=== PATIENT | male | born 1970 ===

== ENCOUNTER → 2020-07-09 15:02 | Outpatient (BNVA) | payer OTHER, SELFPAY | PROVIDERS: PCP Internal Medicine; Visit Provider Urology | DX: Z76.89 Persons encountering health services in other specified circumstances (principal) ==

== ENCOUNTER 2021-12-23 11:39 | Emergency (ER) | payer OTHER, SELFPAY ==
--- NOTE | ~2021-12-23 | CT_ITS ---
EXAMINATION: CT ABDOMEN AND PELVIS WITHOUT CONTRAST CLINICAL INFORMATION: Left-sided flank pain COMPARISON: CT abdomen pelvis 03/04/2015 TECHNIQUE: Multidetector volumetric imaging was performed from the superior aspect of the liver through the pubic symphysis. Sagittal and coronal reformatted images were obtained on the technologist's workstation. This CT examination was performed using dose optimization techniques as appropriate, variously including the following: *Automated exposure control *Adjustment of mA and/or kV according to patient size (this includes techniques or standardized protocols for targeted exams where dose is matched to indication/reason for exam; i.e. extremities or head) *Use of iterative reconstruction technique DLP: 599 mGy-cm FINDINGS: LUNG BASES: The visualized lung bases are unremarkable. LIVER, GALLBLADDER, AND BILIARY TREE: The liver is mildly enlarged measuring 19.2 cm in greatest cephalocaudad dimension and demonstrates decreased attenuation suggesting hepatic steatosis. Calcified granulomas are again noted in the liver. No worrisome focal hepatic lesion or biliary ductal dilatation is present. The gallbladder is unremarkable with no evidence of radiopaque gallstones, gallbladder wall thickening, or obvious pericholecystic inflammatory changes. PANCREAS: Unremarkable. SPLEEN: There is mild splenomegaly with the spleen measuring 13 cm in greatest cephalocaudad dimension ADRENAL GLANDS: Unremarkable. KIDNEYS AND URETERS: The kidneys are normal in size, shape, and attenuation. No hydronephrosis, hydroureter, or calculi seen. No perinephric stranding. BLADDER: Unremarkable. GASTROINTESTINAL TRACT: A small hiatal hernia is present. The small and large bowel are unremarkable. The appendix is unremarkable. ABDOMINAL WALL: There are bilateral small indirect inguinal hernia seen containing only fat along with a tiny periumbilical hernia containing only fat. LYMPH NODES: No retroperitoneal lymphadenopathy. VASCULAR: Unremarkable. PELVIC VISCERA: Bladder and seminal vesicles are unremarkable. OSSEOUS STRUCTURES: Unremarkable. CT/CT abdomen pelvis wo con IMPRESSION: A definite etiology for the patient's left flank pain has not been found. Incidental note made of an enlarged fatty liver with mild splenomegaly, small hiatal hernia and small bilateral inguinal hernias containing only fat. Fleischner guidelines were followed.
--- NOTE | 2021-12-23 12:45 | ECG_ITS ---
Test Reason : abdominal pain Blood Pressure : / mmHG Vent. Rate : 054 BPM Atrial Rate : 054 BPM P-R Int : 150 ms QRS Dur : 076 ms QT Int : 404 ms P-R-T Axes : 068 024 008 degrees QTc Int : 383 ms Artifact in tracing Sinus bradycardia Otherwise normal ECG No previous ECGs available Referred By: Marie Ellis Electronically Signed By:SHAILESH CALERO
[2021-12-23 13:22] VITALS: BP 140/97; PULSE 60; RESP 19; TEMP 36.3; O2SAT 98; BMI 32.8
[2021-12-23 13:38] LABS: MANUAL DIFF FLAG NO
[2021-12-23 13:40] LABS: Basophils Percent Auto 0.3 % (0-2); Eosinophils Absolute Auto 0.2 X10*3/uL (0.0-0.4); Eosinophils Percent Auto 2.4 % (0-4); Hematocrit 46.9 % (42.0-52.0); Hemoglobin 16.3 g/dl (14.0-18.0); Imm Gran Abs Auto 0.01 X10*3/uL (0.00-0.03); Imm Gran Pct Auto 0.1 % (0.0-0.4); Lymphocytes Absolute Auto 1.9 X10*3/uL (1.2-4.9); Mean Corpuscular HGB Conc 34.8 g/dl (31.0-36.0); Mean Corpuscular Volume 80.4 fL (80.0-98.0); Mean Platelet Volume 9.5 fL (9.4-12.4); Monocytes Absolute Auto 0.5 X10*3/uL (0.1-1.2); Monocytes Percent Auto 7.6 % (2-11); Neutrophils Absolute Auto 4.4 x10*3/uL (2.0-8.3); Neutrophils Percent Auto 62.6 % (45-73); Platelet Count 208 X10*3/uL (160-400); Red Blood Count 5.83 X10*6/uL (4.60-5.80); Red Cell Distribution Width 12.7 % (11.0-16.0); White Blood Count 7.1 X10*3/uL (4.8-10.8)
[2021-12-23 14:00] LABS: Alanine Aminotransferase 22 U/L (0-40); Albumin Level 4.6 g/dL (3.5-5.0); Alkaline Phosphatase 115 U/L (39-117); Anion Gap 10 (12-20); Aspartate Amino Transferase 22 U/L (5-37); Bilirubin Direct 0.3 mg/dL (0.0-0.5); Bilirubin Total 0.7 mg/dL (0.0-1.0); Blood Urea Nitrogen 19 mg/dL (9-16); Calcium 9.8 mg/dL (8.4-10.2); Carbon Dioxide 29 mmol/L (22-29); Chloride 107 mmol/L (96-108); Creatinine Clr Calc Pharmacy 85.7; Estimated Glomerular Filt Rate > 60; Glucose Random 92 mg/dL (60-115); Lipase 64 U/L (8-78); Potassium 4.6 mmol/L (3.3-5.1); Sodium 141 mmol/L (135-145)
[2021-12-23 14:41] LABS: Appearance Urine CLEAR; Color Urine YELLOW; Glucose Urine UA NEG (NEG); Leukocyte Esterase Urine NEG (NEG); Nitrite Urine NEG (NEG); Urine Blood NEG (NEG); Urine Ketones NEG (NEG); Urine Protein NEG (NEG-TRACE)
--- NOTE | 2021-12-23 18:36 | ED_ITS ---
HPI - Abdominal Pain General Chief Complaint: Abdominal Pain Stated Complaint: side abd pain Time Seen by Provider: 12/23/21 12:44 Source: patient Mode of arrival: ambulatory Limitations: no limitations History of Present Illness HPI narrative: Patient complaining of left flank left upper abdominal pain for last few months off and on, No correlation with food or movements no urinary complaints for last 2 days patient with feeling nauseated no vomiting no diarrhea no fever no chills has not seen any specialist for this pain Related Data Home Medications Medication Instructions Recorded Confirmed fenofibrate micronized 67 mg 67 mg PO DAILY 07/09/20 capsule flu vac qs 2019(4 yr up)CD(PF) ml IM 07/09/20 lisinopril 10 mg tablet 10 mg PO DAILY 07/09/20 omeprazole 20 mg capsule,delayed 20 mg PO DAILY 07/09/20 release sildenafil 100 mg tablet 100 mg PO DAILY PRN 07/09/20 Previous Rx's Medication Instructions Recorded tramadol 50 mg tablet 50 mg PO Q6H PRN #20 tab 12/23/21 Allergies Allergy/AdvReac Type Severity Reaction Status Date / Time Benadryl Allergy Unknown heart Uncoded 12/22/18 00:00 palpitations Review of Systems Review of Systems Yes all other systems are reviewed and are negative [facility] Past Medical History Medical History ADD (attention deficit disorder) High cholesterol HTN (hypertension) Social History Social History Advance Directives: No Advance Directives Information Provided: No Physical Exam ED Vital Signs: Vital Signs - 24 hr 12/23/21 13:22 12/23/21 18:41 Temperature 97.3 F 98.3 F Pulse Rate 60 68 Respiratory Rate 19 18 Blood Pressure 140/97 H 143/100 H Pulse Oximetry 98 98 BMI result Body Mass Index 32.8 Appearance: Alert. Oriented X3. No acute distress. ENT: Pharynx normal. Oral Mucosa moist Neck: Normal inspection. Neck supple. CVS: Normal heart rate and rhythm. Pulses normal. Respiratory: No respiratory distress. Equal air entry bilateral, no wheezing/rales/rhonchi Abdomen: Soft, deep tenderness left upper quadrant, Bowel sounds are present, no mass palpable, no CVA tenderness Skin: Skin warm and dry. Normal skin color. Normal skin turgor. Extremities: No lower extremity edema. No calf tenderness Neuro: Oriented X 3. MDM - Abdominal Pain MDM Narrative Medical decision making narrative: Patient has nonspecific pain on left side CT scan negative labs are stable likely musculoskeletal will discharge patient home advised to follow with PCP Lab Data Attestation: I reviewed the patient's lab results. Result diagrams: 12/23/21 13:34 12/23/21 13:34 Labs: Lab Results 12/23/21 12/23/21 12/23/21 Range/Units 13:34 13:34 14:33 WBC 7.1 (4.8-10.8) X10*3/uL RBC 5.83 H (4.60-5.80) X10*6/uL Hgb 16.3 (14.0-18.0) g/dl Hct 46.9 (42.0-52.0) % MCV 80.4 (80.0-98.0) fL MCH 28.0 (27.0-33.0) pg MCHC 34.8 (31.0-36.0) g/dl RDW 12.7 (11.0-16.0) % Plt Count 208 (160-400) X10*3/uL MPV 9.5 (9.4-12.4) fL Immature Gran % (Auto) 0.1 (0.0-0.4) % Neut % (Auto) 62.6 (45-73) % Lymph % (Auto) 27.0 (20-40) % Roberts % (Auto) 7.6 (2-11) % Eos % (Auto) 2.4 (0-4) % Baso % (Auto) 0.3 (0-2) % Lymph # (Auto) 1.9 (1.2-4.9) X10*3/uL Roberts # (Auto) 0.5 (0.1-1.2) X10*3/uL Eos # (Auto) 0.2 (0.0-0.4) X10*3/uL Baso # (Auto) 0.0 (0.0-0.2) X10*3/uL Abs Immat Gran (auto) 0.01 (0.00-0.03) X10*3/uL Absolute Neuts (auto) 4.4 (2.0-8.3) x10*3/uL Absolute Nucleated RBC 0.000 (0.0-0.012) X10*3/uL Nucleated RBC % (auto) 0.0 (0.0-0.2) /100WBC Sodium 141 (135-145) mmol/L Potassium 4.6 (3.3-5.1) mmol/L Chloride 107 (96-108) mmol/L Carbon Dioxide 29 (22-29) mmol/L Anion Gap 10 L (12-20) BUN 19 H (9-16) mg/dL Creatinine 1.18 (0.5-1.4) mg/dL Estim Creat Clear Calc 85.7 Estimated GFR > 60 Random Glucose 92 (60-115) mg/dL Calcium 9.8 (8.4-10.2) mg/dL Total Bilirubin 0.7 (0.0-1.0) mg/dL Direct Bilirubin 0.3 (0.0-0.5) mg/dL AST 22 (5-37) U/L ALT 22 (0-40) U/L Alkaline Phosphatase 115 (39-117) U/L Total Protein 7.0 (6.5-8.0) g/dL Albumin 4.6 (3.5-5.0) g/dL Lipase 64 (8-78) U/L Urine Color YELLOW Urine Appearance CLEAR Urine pH 6.0 (5.0-8.0) Ur Specific Emerson 1.020 (1.005-1.025) Urine Protein NEG (NEG-TRACE) MG/DL Urine Glucose (UA) NEG (NEG) MG/DL Urine Ketones NEG (NEG) MG/DL Urine Blood NEG (NEG) Urine Nitrite NEG (NEG) Ur Leukocyte Esterase NEG (NEG) Discharge Plan Discharge Clinical Impression: Abdominal pain Patient Disposition: Home, Self-Care Instructions: Abdominal Pain (ED) Additional Instructions: Your cause of abdominal pain is not very clear, CT scan is negative for any acute pathology Likely pain is muscular take tramadol for pain Prescriptions: New tramadol 50 mg tablet 50 mg PO Q6H PRN (Reason: pain) Qty: 20 0RF Interventions: ED Discharge Assessment Last Done: 12/23/21 20:48 Discharge Date/Time: 12/23/21 20:49
[2021-12-23 18:41] VITALS: BP 143/100; PULSE 68; RESP 18; TEMP 36.8; O2SAT 98
--- NOTE | 2021-12-23 18:49 | PC.NURSE ---
Pt c/o LUQ pain that radiates into the back for awhile but worsening since Wednesday. Pt pain 04/05, denies N/V/D at this time. Denies urinary S/S. Pplan for CT scan. Call greenberg within reach. Will continue to monitor.
== END 2021-12-23 20:49 | disposition home or self-care (01) ==
PROVIDERS: Emergency Medicine; Emergency Provider Internal Medicine; PCP Internal Medicine
DX: R10.9 Unspecified abdominal pain (principal); I10 Essential (primary) hypertension; Z79.899 Other long term (current) drug therapy
CPT/HCPCS: 36415; 74176; 80048; 80076; 81003; 83690; 85025; 93005; 99284

== ENCOUNTER 2023-08-25 12:40 | Outpatient (REF) | payer OTHER, SELFPAY | END 2023-08-25 12:41 | disposition home or self-care (01) | LOC: HO.HHCLNP 12:40 | PROVIDERS: Visit Provider Nurse Practitioner Primary Care | DX: M54.50 Low back pain, unspecified (principal); R82.90 Unspecified abnormal findings in urine | CPT/HCPCS: 87086 ==

== ENCOUNTER 2023-09-09 06:31 | Outpatient (REF) | payer OTHER, SELFPAY ==
--- NOTE | ~2023-09-09 | CT_ITS ---
EXAMINATION: CT ABDOMEN AND PELVIS WITH CONTRAST CLINICAL INFORMATION: Abdominal pain, right flank pain. COMPARISON: CT abdomen and pelvis 12/23/2021. TECHNIQUE: Multidetector volumetric images were obtained from the superior aspect of the liver through the pubic symphysis following administration 85 mL of Omnipaque 350 intravenous contrast. Sagittal and coronal reformatted images were obtained on the technologist's workstation. Oral contrast: Yes This CT examination was performed using dose optimization techniques as appropriate, variously including the following: *Automated exposure control *Adjustment of mA and/or kV according to patient size (this includes techniques or standardized protocols for targeted exams where dose is matched to indication/reason for exam; i.e. extremities or head) *Use of iterative reconstruction technique DLP: 505 mGy-cm FINDINGS: LUNG BASES: The visualized lung bases are unremarkable. LIVER, GALLBLADDER, AND BILIARY TREE: Enlarged measuring 20.5 cm right lobe length. Low-attenuation parenchyma consistent with steatosis. Calcified granulomas in segment 4A and segment 8. No discrete liver mass. No biliary ductal dilatation. The gallbladder appears normal. PANCREAS: No discrete pancreatic mass. No pancreatic ductal dilatation. SPLEEN: Mild splenomegaly measuring 12 cm in length. ADRENAL GLANDS: No adrenal mass. KIDNEYS AND URETERS: Symmetric nephrograms. No nephrolithiasis or hydronephrosis. Tiny hypodensity in the lower pole left kidney is too small to characterize but most likely a cyst. No follow-up imaging is recommended. BLADDER: No discrete mass. No bladder calculus. GASTROINTESTINAL TRACT: Small hiatal hernia. The small bowel is normal in caliber. The appendix is not discretely seen but no inflammatory changes around the cecum to suggest occult appendicitis. The large bowel is normal in caliber. No evidence of enteritis or colitis. ABDOMINAL WALL: Small fat-containing umbilical hernia. LYMPH NODES: No lymphadenopathy. VASCULAR: No aortic aneurysm. PELVIC VISCERA: The prostate is not enlarged. OSSEOUS STRUCTURES: Degenerative changes in the spine. CT/CT abdomen pelvis w IV con IMPRESSION: No acute findings to correlate with abdominal pain in right flank pain. Enlarged fatty liver. Mild splenomegaly. Fleischner guidelines were followed.
[2023-09-09 06:42] LABS: MANUAL DIFF FLAG NO
[2023-09-09 07:54] LABS: Basophils Percent Auto 0.6 % (0-2); Eosinophils Absolute Auto 0.2 X10*3/uL (0.0-0.4); Hematocrit 43.1 % (42.0-52.0); Hemoglobin 14.6 g/dl (14.0-18.0); Imm Gran Abs Auto 0.08 X10*3/uL (0.00-0.03); Imm Gran Pct Auto 1.1 % (0.0-0.4); Lymphocytes Percent Auto 26.9 % (20-40); Mean Corpuscular HGB Conc 33.9 g/dl (31.0-36.0); Mean Corpuscular Hemoglobin 27.4 pg (27.0-33.0); Mean Platelet Volume 9.3 fL (9.4-12.4); Monocytes Absolute Auto 0.6 X10*3/uL (0.1-1.2); Monocytes Percent Auto 8.6 % (2-11); Neutrophils Absolute Auto 4.3 x10*3/uL (2.0-8.3); Neutrophils Percent Auto 59.8 % (45-73); Platelet Count 319 X10*3/uL (160-400); Red Blood Count 5.32 X10*6/uL (4.60-5.80); Red Cell Distribution Width 11.9 % (11.0-16.0); White Blood Count 7.2 X10*3/uL (4.8-10.8)
[2023-09-09 08:20] LABS: Alanine Aminotransferase 24 U/L (0-40); Albumin Level 4.3 g/dL (3.5-5.0); Alkaline Phosphatase 109 U/L (39-117); Amylase 53 U/L (28-100); Anion Gap 11 (12-20); Aspartate Amino Transferase 22 U/L (5-37); Bilirubin Total 0.4 mg/dL (0.0-1.0); Blood Urea Nitrogen 18 mg/dL (9-16); Calcium 9.6 mg/dL (8.4-10.2); Carbon Dioxide 25 mmol/L (22-29); Chloride 109 mmol/L (96-108); Estimated Glomerular Filt Rate > 60; Glucose Random 106 mg/dL (60-115); Lipase 65 U/L (8-78); Potassium 4.1 mmol/L (3.3-5.1); Sodium 141 mmol/L (135-145); Total Protein 7.2 g/dL (6.5-8.0)
[2023-09-09 09:01] LABS: Appearance Urine Clear; Color Urine Dark Yellow; Glucose Urine UA Negative (Negative); Leukocyte Esterase Urine Negative (Negative); Nitrite Urine Negative (Negative); Specific Gravity - Urine >= 1.030 (1.005-1.025); Urine Blood Negative (Negative); Urine Ketones Trace mg/dL (Negative); Urine Protein Negative (Neg-Trace)
[2023-09-09] MEDS: iohexoL 350 MG/ML 100 ML INFUS..BTL IV (09:58)
[2023-09-09] MEDS: Barium Sulfate Oral (Vanilla) 450 ML ORAL.SUSP 900 ML PO (10:00)
[2023-09-09 10:16] LABS: Bacteria Urine None Seen (None Seen); Hyaline Casts Urine 0-2 /LPF (0-2); Squamous Epithelial Cell Urine 0-2 /HPF (0-2); WBC Urine 0-5 /HPF (0-5)
== END 2023-09-09 06:32 | disposition home or self-care (01) ==
LOC: HO.CT 06:31
PROVIDERS: PCP Internal Medicine; Visit Provider Nurse Practitioner Primary Care
DX: R10.84 Generalized abdominal pain (principal)
CPT/HCPCS: 36415; 74177; 80053; 81001; 82150; 83690; 85025; Q9967

== ENCOUNTER 2023-11-25 14:47 | Outpatient (AMB) | payer OTHER, SELFPAY ==
--- NOTE | 2023-11-25 15:00 | A.OFFVIS_ITS ---
Intake Intake Visit Reasons: retrograde ejaculation N53.14 Intake Note: New Patient presents today to establish treatment for retrograde ejaculation Meds- None Allergies to Antibiotic- No Known Allergies Blood Thinner- None Patient stated he is not longer taking Sildenafil Post Void Residual: 21ml Corrosion Control Engineer Required: No Accompanied by: Self / Same As Patient Allergies Benadryl Allergy (Unknown, Uncoded 11/25/23 15:11) heart palpitations HPI HPI Comments History of Present Illness Details Gilbert is a very pleasant male. He is seen for the following urologic conditions - erectile dysfunction Erectile dysfunction Progressive Has been using sildenafil on demand Would like to switch to Cialis daily Prescription provided [facility] Medical History ADD (attention deficit disorder) High cholesterol HTN (hypertension) Review of Systems Const Denies chills and Denies fever(s) Card Reports no additional complaints and Denies syncope Resp Denies cough GI Denies abdominal pain and Denies heartburn Reports as per HPI and Denies change in libido Neuro Denies syncope Psych Denies change in libido Endo Denies change in libido Physical Exam Const General: cooperative, healthy appearing, comfortable and no acute distress Orientation/consciousness: patient oriented x3 HEENT Face and sinus: Yes normal facial exam Mouth: moist mucous membranes Neck Neck: Yes normal visual inspection, Yes full ROM and Yes trachea midline Chest Chest palpation & inspection: normal inspection of the chest Resp Effort & Inspection: normal respiratory effort, able to speak in complete sentences and no respiratory distress GI Inspection: Yes normal to inspection Back/Spine/Pelvis Cervical Spine: normal cervical lordosis Thoracic/Lumbar Spine: thoracic and lumbar spine normal to inspection Skin General skin exam: no rashes or lesions noted Neuro General: patient oriented x3, gait normal, tone normal and moves all extremities Extrem General: Yes normal to inspection and Yes capillary refill normal Office Procedures Post Void Residual Post Residual Void Post Void Residual (PVR): 02466-Rdaw Void Residual by ultrasound Assessment & Plan Assessment & Plan (1) Erectile dysfunction: Code(s): N52.9 - Male erectile dysfunction, unspecified (2) BPH NOS w/o ur obs/LUTS: Code(s): N40.0 - Benign prostatic hyperplasia without lower urinary tract symptoms Plan Three-month follow-up tele Orders: Orders AMB Post Void Residual by ultrasound Today R33.9 - Retention of urine, unspecified Medications: New tadalafil 5 mg PO DAILY 90 days 90 tabs 0RF sexual activity N52.01 - Erectile dysfunction due to arterial insufficiency Patient Instructions: Imaging studies, laboratory and physical exam results were discussed and reviewed in detail. No major barriers to patient understanding were identified. An opportunity to ask questions regarding the treatment plan was provided. All questions were answered. The patient expressed understanding and agreement with the above treatment plan. The patient is aware they should contact our office by phone for worsening of their current condition or the appearance of new urologic symptoms. Compliance is encouraged with any medications and followup testing that is ordered. It is a privilege to participate in the urologic care of your patient. If you have any questions or concerns regarding treatment for the above conditions, or other urologic issues, please do not hesitate to contact me. The office telephone contact is [phone]. This note is constructed using voice recognition software. While every effort has been made to ensure accuracy cream cheese maker errors may have been included. Yours sincerely, Dr Luis Mckee MD, [facility] - Urology Providers of Expert, Compassionate Care for the Genitourinary System Coding Level of Care Code New Pt Level 4 (88097) Diagnoses Erectile dysfunction N52.9 BPH NOS w/o ur obs/LUTS N40.0 CPT Codes Post Residual Void - PVR CPT Code: 33289-Cptp Void Residual by ultrasound ([id number])
== END 2023-11-25 15:52 | disposition home or self-care (01) ==
PROVIDERS: PCP Internal Medicine; Visit Provider Urology
DX: N52.9 Male erectile dysfunction, unspecified (principal); N40.0 Benign prostatic hyperplasia without lower urinary tract symptoms
CPT/HCPCS: 99203

== ENCOUNTER → 2023-11-25 14:47 | Outpatient (BNVA) | payer OTHER, SELFPAY | PROVIDERS: PCP Internal Medicine; Visit Provider Urology | DX: N52.9 Male erectile dysfunction, unspecified (principal); N40.0 Benign prostatic hyperplasia without lower urinary tract symptoms | CPT/HCPCS: 51798 ==

== ENCOUNTER 2024-02-10 07:48 | Outpatient (REF) | payer OTHER, SELFPAY ==
--- NOTE | ~2024-02-10 | US_ITS ---
EXAMINATION: US ABDOMEN LIMITED CLINICAL INFORMATION: Right upper quadrant abdominal pain. Rule out gallstones. COMPARISON: CT abdomen and pelvis 09/09/2023. TECHNIQUE: Real-time imaging of the right upper quadrant abdominal viscera. FINDINGS: PANCREAS: Most of the pancreas is obscured by bowel gas and could not be evaluated. LIVER: The liver is likely enlarged as seen on the prior CT scan but accurate measurements were not obtained on this exam. The liver contour is normal. There is diffuse increased liver parenchymal echogenicity, consistent with hepatic steatosis. No focal hepatic lesion. There is no intrahepatic biliary duct dilatation seen. GALLBLADDER: There are some areas of comet tail shadowing consistent with adenomyomatosis. The gallbladder is physiologically distended without evidence of stones, sludge, polyps, wall thickening or pericholecystic fluid. COMMON BILE DUCT: Normal in caliber measuring 0.2 cm in diameter. RIGHT KIDNEY: Normal. No hydronephrosis. No renal calculi or focal parenchymal lesions. The kidney measures 11.2 cm in maximum dimension. FREE FLUID: None. US/US abdomen limited IMPRESSION: 1. Enlarged fatty liver. 2. Adenomyomatosis of the gallbladder.
[2024-02-10 09:09] LABS: Alanine Aminotransferase 31 U/L (0-40); Albumin Level 4.5 g/dL (3.5-5.0); Alkaline Phosphatase 75 U/L (39-117); Anion Gap 12 (12-20); Aspartate Amino Transferase 23 U/L (5-37); Bilirubin Direct 0.2 mg/dL (0.0-0.5); Bilirubin Total 0.7 mg/dL (0.0-1.0); Blood Urea Nitrogen 13 mg/dL (9-16); Calcium 9.2 mg/dL (8.4-10.2); Carbon Dioxide 22 mmol/L (22-29); Chloride 110 mmol/L (96-108); Cholesterol 143 mg/dL (<200); Estimated Glomerular Filt Rate > 60; Glucose Random 115 mg/dL (60-115); HDL Cholesterol 28 mg/dL (>40); LDL Cholesterol Calculated 80 mg/dL (<100); Potassium 3.8 mmol/L (3.3-5.1); Sodium 140 mmol/L (135-145); Total Protein 6.9 g/dL (6.5-8.0); Triglycerides 177 mg/dL (<150)
[2024-02-10 09:23] LABS: Prostate Specific Antigen Scr 0.46 ng/mL (<0.05-4.0)
[2024-02-10 11:43] LABS: Reflex LDLD? No
== END 2024-02-10 07:49 | disposition home or self-care (01) ==
LOC: HO.US 07:48
PROVIDERS: Absent Provider Internal Medicine; PCP Internal Medicine; Visit Provider Internal Medicine
DX: Z00.00 Encounter for general adult medical examination without abnormal findings (principal); R10.11 Right upper quadrant pain; Z12.5 Encounter for screening for malignant neoplasm of prostate; I10 Essential (primary) hypertension; E78.1 Pure hyperglyceridemia; N52.9 Male erectile dysfunction, unspecified; N53.14 Retrograde ejaculation
CPT/HCPCS: 36415; 76705; 80053; 80061; 82248; 84153

== ENCOUNTER 2024-05-05 10:28 | Outpatient (AMB) | payer BC, SELFPAY ==
--- NOTE | 2024-05-05 10:28 | A.OFFVIS_ITS ---
Vital Signs 05/05/24 10:41 Height 5 ft 9 in Weight 230 lb BMI 34.0 BP 164/100 H Blood Pressure Location Lt brachial Position Sitting Pulse 66 Intake Visit Reasons: Gallbladder myomatosis Intake Note: Patient is seen in office for evaluation and treatment of the gallbladder. Pt c/o:pain in the right upper quadrant radiates to the back, onset few months, admits to heartburn and acid reflux, takes omeprazole with relief, does not eat greasy foods- denies n/v/d/c Customs Brokerage Agent Required: No Accompanied by: Self / Same As Patient Allergies Benadryl Allergy (Unknown, Uncoded 05/05/24 10:28) heart palpitations HPI Comments Details: 53-year-old male patient presenting with complaints of abdominal pain mainly in the left upper quadrant radiating to the back bilaterally. The pain is felt intermittently with no clear inciting event. He denies change when eating or not eating. He does report acid reflux and needs to take omeprazole daily otherwise the pain is made worse. He denies nausea, vomiting, fever or chills. Previous workup with CT abdomen and pelvis was negative for diverticulitis. A recent ultrasound of the abdomen did reveal adenomyomatosis of the gallbladder but no gallstones, sludge, wall thickening or pericholecystic fluid. He denies fatty food intolerance, diarrhea or constipation. He presents today to discuss management of the gallbladder findings. [facility] Medical History ADD (attention deficit disorder) HTN (hypertension) High cholesterol Review of Systems Const All systems reviewed & are unremarkable except as noted in HPI and below Denies chills, Denies fever(s), Denies headache(s), Denies poor appetite and Denies weakness ENT Denies headache(s) Card Denies chest pain, Denies irregular heart rhythm, Denies palpitations and Denies dyspnea Resp Denies cough, Denies excessive phlegm production and Denies dyspnea GI Reports abdominal pain, Denies bloating, Denies change in bowel habits, Denies constipation, Reports heartburn, Denies diarrhea, Denies nausea and Denies vomiting Denies difficulty urinating and Denies urinary frequency Musc Denies back pain, Denies muscle weakness and Denies numbness Skin/Breast Denies changing lesions and Denies unusual bruising Neuro Denies headache(s), Denies numbness, Denies paresthesias and Denies weakness Psych Denies anxiety and Denies depression Endo Denies palpitations Alfonso/Lymph Denies lymphadenopathy Physical Exam Vital Signs: Last Vital Signs Pulse 66 05/05/24 10:41 BP 164/100 H 05/05/24 10:41 BMI result Body Mass Index 34.0 Const General: cooperative and no acute distress Nutritional Appearance: well nourished Orientation/consciousness: patient oriented x3 Limitations: no limitations HEENT Head: Yes normocephalic and Yes atraumatic Ears: hearing grossly normal bilaterally Resp Effort & Inspection: normal respiratory effort, no audible wheezes, no cough and no respiratory distress Cardio Jugular venous distension: no JVD GI Other: Soft, nondistended, nontender to deep palpation in all 4 quadrants. Negative Jamison sign, no rebound, guarding or rigidity. Inspection: Yes normal to inspection Skin Other: Warm, dry, no rash Neuro General: patient oriented x3 Extrem General: Yes no clubbing, cyanosis or edema Assessment & Plan Assessment & Plan (1) Adenomyomatosis of gallbladder: Code(s): D13.5 - Benign neoplasm of extrahepatic bile ducts Category: Medical (2) Acid reflux: Code(s): K21.9 - Gastro-esophageal reflux disease without esophagitis Category: Medical Qualifiers: Esophagitis presence: esophagitis presence not specified Qualified Code(s): K21.9 - Gastro-esophageal reflux disease without esophagitis (3) Left upper quadrant abdominal pain: Code(s): R10.12 - Left upper quadrant pain Category: Medical Plan 53-year-old male patient presenting with complaints of upper abdominal pain mainly in the left upper quadrant with radiation to the back. This has been persistent over several years with no clear inciting event, aggravating or relieving factors. Workup with an ultrasound abdomen revealed adenomyomatosis of the gallbladder. Patient currently has no gallbladder symptoms. I would be more concerned about upper GI cause of the pain possibly gastritis or peptic ulcer disease. Patient was previously evaluated by Dr. Good prior to the pandemic and has previously undergone colonoscopy and upper endoscopy. No gallbladder surgery is recommended at this time. I would recommend consultation with Gastroenterology, Dr. Good and a referral has been sent. He should follow up in our office as needed. Orders: Referrals Gastroenterology Referral K21.9 - Gastro-esophageal reflux disease without esophagitis, R10.12 - Left upper quadrant pain Coding Level of Care Code New Pt Level 4 (26282) Diagnoses Adenomyomatosis of gallbladder D13.5 Gastroesophageal reflux disease, unspecified whether esophagitis present K21.9 Esophagitis presence: esophagitis presence not specified Left upper quadrant abdominal pain R10.12
[2024-05-05 10:41] VITALS: BP 164/100; PULSE 66; BMI 34.0
== END 2024-05-05 10:49 | disposition home or self-care (01) ==
PROVIDERS: PCP Internal Medicine; Visit Provider Surgery
DX: D13.5 Benign neoplasm of extrahepatic bile ducts (principal); K21.9 Gastro-esophageal reflux disease without esophagitis; R10.12 Left upper quadrant pain
CPT/HCPCS: 99204

== ENCOUNTER → 2024-05-05 10:28 | Outpatient (BNVA) | payer OTHER, SELFPAY | PROVIDERS: PCP Internal Medicine; Visit Provider Surgery ==

== ENCOUNTER 2025-03-26 09:51 | Outpatient (REF) | payer BC, SELFPAY ==
--- OUTSIDE RECORDS SUMMARY | 2025-03-26 10:23 | XMS_ITS | Encounter Summary ---
Author Organization [employer] Address [address] [place] [address] [address] [place] [address] Care Team Providers Care Residential Mortgage Underwriter Name Role Phone Tomasz Azar MD Primary Care Provide r Reason for Visit * Reason Comments Med Refill Encounter Details Date Type Department Care Team (Late st Contact Info) Description 10/27/2023 Refill [facility] [address], [place] [phone] Maritza Hale ANP [address], [place] [phone] Right flank pain Social History Tobacco Use Types Packs/Day Years Used Date Smoking Tobacco: Never Smokeless Tobacco: Never Alcohol Use Standard Drinks/Week Comments Never 0 (1 standard drink = 0.6 oz pur e alcohol) Depression Answer Date Recorded Patient Health Questionnaire-9 Score 14 09/28/2023 Patient Health Questionnaire-9 Score 14 09/28/2023 Last PHQ-9: Questionnaire Data Not on file 0 09/28/2023 Housing Stability Answer Date Recorded What is your housing situation today? I have srikanth recio 09/28/[address] you li ve. Do you have problems with any of the following? None of the above 09/28/2023 Food Insecurity Answer Date Recorded Within the past 12 months, y ou worried that your food would run out before you got money to buy more: Never True 09/28/2023 Within the past 12 months,th e food you bought just didn't last and you didn't have enough money to get more: Never True 10/2023 Transportation Answer Date Recorded In the past 12 months, has l ack of transportation kept you from medical appts, meetings, work or from getting things needed for daily living? No 09/28/2023 Utilities Answer Date Recorded In the past 12 months, has t he electric, gas, oil or water company threatened to shut off services in your home? No 09/28/2023 Depression Answer Date Recorded Patient Health Questionnaire-2 Score 2 09/28/2023 Sex and Gender Information Value Date Recorded Sex Assigned at Male 07/27/2022 10:23 AM EDT Legal Sex Male 10:23 AM EDT Gender Identity Male 07/27/2022 10:23 AM EDT Sexual Orientation Straight 07/27/2022 10 :23 AM EDT documented as of this encounter Plan of Treatment Upcoming Encounters Date Type Department Care Team (Late st Contact Info) Description 05/31/2025 2:15 PM EDT Office Visit [facility] [address] [place] [address] Tomasz Azar MD [address] [place] [address] documented as of this encounter Visit Diagnoses Diagnosis Right flank pain Abdominal pain, unspecified site documented in this encounter Additional Health Concerns Assessment Noted Time PHQ-9 Depression Total Score: 14 024 3:10 PM EST documented as of this encounter Care Teams Residential Mortgage Underwriter Relationship Specialty Start Date End Date Tomasz Azar MD [address] [place] [address] PCP - General Internal Medicine 05/03/14 documented as of this encounter
[2025-03-26 11:50] LABS: Alanine Aminotransferase 36 U/L (0-40); Albumin Level 4.9 g/dL (3.5-5.0); Alkaline Phosphatase 116 U/L (39-117); Anion Gap 12 (12-20); Aspartate Amino Transferase 34 U/L (5-37); Bilirubin Total 0.9 mg/dL (0.0-1.0); Blood Urea Nitrogen 16 mg/dL (9-16); Calcium 9.5 mg/dL (8.4-10.2); Carbon Dioxide 26 mmol/L (22-29); Chloride 107 mmol/L (96-108); Cholesterol 157 mg/dL (<200); Estimated Glomerular Filt Rate > 60; Glucose Random 106 mg/dL (60-115); HDL Cholesterol 30 mg/dL (>40); LDL Cholesterol Calculated 78 mg/dL (<100); Potassium 3.8 mmol/L (3.3-5.1); Sodium 141 mmol/L (135-145); Total Protein 7.2 g/dL (6.5-8.0); Triglycerides 248 mg/dL (<150)
[2025-03-26 12:06] LABS: Prostate Specific Antigen Scr 0.47 ng/mL (<0.05-4.0)
== END 2025-03-26 09:52 | disposition home or self-care (01) ==
LOC: HO.HHCL 09:51
PROVIDERS: PCP Internal Medicine; Visit Provider Internal Medicine
DX: Z00.00 Encounter for general adult medical examination without abnormal findings (principal); I10 Essential (primary) hypertension; Z12.5 Encounter for screening for malignant neoplasm of prostate
CPT/HCPCS: 36415; 80053; 80061; 84153

== ENCOUNTER 2025-05-08 11:19 | Outpatient (AMB) | payer BC, SELFPAY ==
--- NOTE | 2025-05-08 11:21 | MHC.OFFVIS ---
Vital Signs 05/08/25 11:30 Height 5 ft 9 in Weight 224 lb BMI 33.1 BP 144/90 H Blood Pressure Location Lt brachial Position Sitting Pulse 68 Intake Visit Reasons: (L) inguinal hernia Intake Note: Patient is seen in office for evaluation of a left inguinal hernia. 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, has not had imaging for this, some discomfort at times Last seen: Gallbladder Trace Clerk Required: No Accompanied by: Self / Same As Patient Allergies Benadryl Allergy (Unknown, Uncoded 05/05/24 10:28) heart palpitations Medication List - Last Reconciled 05/08/25 by Stewart Reno MD fenofibrate micronized 67 mg PO DAILY flu vac qs 2019(4 yr up)CD(PF) mL IM lisinopril 10 mg PO DAILY omeprazole 20 mg PO DAILY sildenafil 100 mg PO DAILY PRN tadalafil 5 mg PO DAILY 90 days tramadol 50 mg PO Q6H PRN HPI Comments Details: 54-year-old male patient presenting for evaluation of a left inguinal hernia. He reports a gradual onset of pain beginning in January 2025 without any inciting event. The pain has gradually increased in severity and has been associated with the lump which he is noted when in bed. The lump seems to increase in size with lifting with weights and exercising. He has occasional constipation but denies nausea or vomiting. He denies any previous history of hernias or hernia surgery. He denies any symptoms in the right groin. He presents today to discuss repair of this left inguinal hernia. 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 [facility] Medical History ADD (attention deficit disorder) HTN (hypertension) High cholesterol Review of Systems Const All systems reviewed & are unremarkable except as noted in HPI and below Physical Exam Vital Signs: Last Vital Signs Pulse 68 05/08/25 11:30 BP 144/90 H 05/08/25 11:30 BMI result Body Mass Index 33.1 Const General: cooperative and no acute distress Nutritional Appearance: well nourished Orientation/consciousness: patient oriented x3 Limitations: no limitations HEENT Head: Yes normocephalic and Yes atraumatic Ears: hearing grossly normal bilaterally Resp Effort & Inspection: normal respiratory effort, no audible wheezes, no cough and no respiratory distress Cardio Jugular venous distension: no JVD GI Other: Soft, nondistended, tender in the left groin. Palpation within the inguinal canal does reveal a palpable hernia which increases in size with Valsalva maneuvers. No right inguinal hernias identified. Inspection: Yes normal to inspection Skin Other: Warm, dry, no rash Neuro General: patient oriented x3 Extrem General: Yes no clubbing, cyanosis or edema Assessment & Plan Assessment & Plan (1) Left inguinal hernia: Code(s): K40.90 - Unilateral inguinal hernia, without obstruction or gangrene, not specified as recurrent Category: Medical Plan 54-year-old male patient presenting with complaints of pain in the left groin. The pain comes and goes especially with heavy lifting or with exercising. On examination the patient does indeed have a palpable left inguinal hernia, probable indirect, reducible. I discussed the procedure, risks and alternatives regarding repair of this left inguinal hernia and she consents to an open repair of the left inguinal hernia with mesh. Coding Level of Care Code New Pt Level 4 (29960) Diagnoses Left inguinal hernia K40.90
[2025-05-08 11:30] VITALS: BP 144/90; PULSE 68; BMI 33.1
--- OUTSIDE RECORDS SUMMARY | 2025-05-08 12:27 | XMS_ITS | Clinical Summary ---
Author Organization [employer] [facility] Address [address] [place] [address] Care Team Providers Care Database Designer Name Role Phone Tomasz Naik MD Primary Care Provi henry Family History Medical History Relation Name Comments Diabetes Mother Relation Name Status Comments Brother Alive 2,one not sure of what Father Other does not know Mother Alive Sister Alive 3,healthy Social History Tobacco Use Types Packs/Day Years Used Date Smoking Tobacco: Never Smokeless Tobacco: Never Alcohol Use Standard Drinks/Week Comments No 0 (1 standard drink = 0.6 oz pur e alcohol) Sex and Gender Information Value Date Recorded Sex Assigned at Not on file Legal Sex Male 9:12 AM EST Gender Identity Not on file Sexual Orientation Not on file Obstetrics History Plan of Treatment Health Maintenance Due Date Last Done Comments Hepatitis B Vaccines (1 of 3 - 19+ 3-dose series) 1988 Pneumococcal Vaccine: 50+ Ye ars (1 of 1 - PCV) 2019 Zoster Vaccines (1 of 2) 2019 DTaP,Tdap,and Td Vaccines (2 - Td or Tdap) 08/08/2022 08/08/2012 COVID-19 Vaccine (1 - 2023-2 5 season) 2024 Depression Screening 09/27/2024 Influenza Vaccine (#1) 2025 HIB Vaccines Aged Out No longer eligi ble based on patient's age to complete this topic HPV Vaccines Aged Out No longer eligi ble based on patient's age to complete this topic Hepatitis A Vaccines Aged Out No long er eligible based on patient's age to complete this topic IPV Vaccines Aged Out No longer eligi ble based on patient's age to complete this topic MMR Vaccines Aged Out No longer eligi ble based on patient's age to complete this topic Meningococcal ACWY Vaccine Aged Out N o longer eligible based on patient's age to complete this topic Meningococcal B Vaccine Aged Out No l onger eligible based on patient's age to complete this topic RSV Immunization Patients Un henry 20 months Aged Out No longer eligible b ased on patient's age to complete this topic Varicella Vaccines Aged Out No longer eligible based on patient's age to complete this topic Care Teams Database Designer Relationship Specialty Start Date End Date Tomasz Naik MD [address] [place] [address] [place] [phone] PCP - General 10/28/13
--- OUTSIDE RECORDS SUMMARY | 2025-05-08 12:27 | XMS_ITS | Patient Health Record ---
Author Organization [facility] Address [address] [place] [address] Care Team Providers Care Assembly And Packing Supervisor Name Role Phone Sandoval Brock MD, Tomasz Primary Care Provide r Unavailable Wilbert Good Unavailable [phone] Stewart Reno Unavailable Unavailable Allergies Allergen (clinical drug ingredient) Drug/Non Drug Allergy documented on EMR Reaction Allergy Type Onset Date Status diphenhydramine Benadryl SENSITIVITY Drug Allergy Active walnut (uncoded) Unknown Allergy Act светлана Reason For Referral Referring Provider First Name Tomasz Referring Provider Last Name Sandoval mendoza Referring Provider Speciality Internal M edicine [facility]erred Provider Wilbert Good Referred Address [address] [facility],[address],[place], [place],[address], Referred Provider Specialty Gastroentero logy General Notes Mile Fulton 024 04:27:41 PM EDT > requested an o blue referral for visit with Dr. Good on , Mile Fulton 07/04/2024 02:56:20 PM EDT > PER C THE PT NEEDS TO NOTIFY BC/BS OF HIS PCP. PT NOTIFIED AND TOLD TO CALL BC/BS AND NOTIFY C ONCE THIS IS COMPLETED , Mile Fulton 08/23/2024 09:21:33 AM EST > pt no showed...still needs a referral Referral Priority Routine Medications Medication SIG (Take, Route, Frequency, Duration) Notes Start Date End Date Status Zinc 100 MG 1 tablet Orally Once a day for 30 day(s) Active Dicyclomine HCl 10 MG 1 or 2 capsules Or ally Every 6 hours as needed for abdominal discomfort for 30 day(s) 01/26/2024 Active Omeprazole 20 MG TK 1 C PO QD AC Oral for 30 Active Calcium Magnesium Ac tive Pravastatin Sodium 40 MG TK 1 T PO QD Or al for 90 Active Lisinopril 10 MG TK 1 T PO QD Oral fo r 90 Active Chlorthalidone 25 MG TK 1 T PO QD Oral f or 90 Active Methylphenidate HCl ER 18 MG (Schedule I I Drug) TK 1 T PO QD IN THE MORNING Oral for 30 Active Aspirin 81 MG WRITER 1 T PO QD Oral f or 30 Active Immunizations Vaccine Route Administration Date Status Comme nts Influenza Unknown 01/25/2020 Refused Influenza Unknown 01/26/2024 Refused Social History Tobacco Use: Social History Observation Description Date Details (start date - stop date) Never Smoker NA - NA Tobacco Use/Smoking Question Answer Notes Patient is a nonsmoker Alcohol Screen Question Answer Notes Did you have a drink contain ing alcohol in the past year? Yes How often did you have a dri nk containing alcohol in the past year? Never (0 point) How many drinks did you have on a typical day when you were drinking in the past year? 1 or 2 drinks (0 point) How often did you have 6 or more drinks on one occasion in the past year? Never (0 point) Points 0 Interpretation Negative Section Notes: Nonsmoker; no sig alcohol Nonsmoker; no sig alcohol Problems Problem Type SNOMED Code ICD Code Onset Dates Problem Status W/U Status Risk Notes Problem 855215134 Encounter for screening for malignant neoplasm of colon (Z12.11) Active confirmed Problem 780291797 Gastroesophageal reflux disease, esophagitis presence not specified (K21.9) Active confirmed Problem Right upper quadrant pain (126465396) RUQ abdominal pain (R10.11) Active confirmed Problem Left lower quadrant pain (314969116) LLQ abdominal pain (R10.32) Active confirmed Encounters Encounter Location Date Provider Diagnosis [facility] [address] [place] [phone] 07/03/2024 Wilbert Good [facility] [address] [place] [phone] 08/15/2024 Wilbert Good Plan Of Treatment Pending Test Test Name Order Date LIVER PROFILE 01/26/2024 CBC w DIFF 01/26/2024 US abdomen limited 01/26/2024 Future Test Test Name Order Date UPPER GI ENDOSCOPY 01/25/2020 COLONOSCOPY 01/25/2020 Insurance Providers Payer Name Payer Address Payer Phone Subscriber Number Group Number Insured Name Patient Relationship to Insured Coverage Start Date Coverage End Date [facility] PROFESSIONAL CLAIMS [address] [place] [address] [id number] KATELYN [place] Self - patient is the insured Medical (General) History Medical History History ICD Code Denies [place],DM,CVA,Lung disease,renal dise ase Hypertension Hyperlipidemia GERD-describes an EGD in [facility] in approx 2014; upper endoscopy with me in 03/2020 revealed a small hiatal hernia and reflux, but no evidence of any esophagitis nor Yang's esophagus ADD Colonoscopy in 03/2020 revealed only hype rplastic polyps Surgical History Surgery Date(Month/Year) TESTICLE TORSION
--- OUTSIDE RECORDS SUMMARY | 2025-05-08 12:27 | XMS_ITS | Encounter Summary ---
Author Organization [employer] Address [address] [place] [address] 7[address] [place] [address] Care Team Providers Care Rn Radiation Name Role Phone Tomasz Azar MD Primary Care Provide r Reason for Visit * Reason Comments Med Refill Encounter Details Date Type Department Care Team (Late st Contact Info) Description 10/27/2023 Refill [facility] MEDICINE [address] [place], [place] [phone] Maritza Hale ANP [address] [place], [place] [phone] Right flank pain Social History Tobacco Use [...] Description 05/31/2025 2:15 PM EDT Office Visit [facility] MED[facility]INE [address] [place] [address] Tomasz Azar MD [address] [place] [address] documented as of this encounter Visit Diagnoses Diagnosis Right flank pain Abdominal pain, unspecified site documented in this encounter Additional Health Concerns Assessment Noted Time PHQ-9 Depression Total Score: 14 024 3:10 PM EST documented as of this encounter Care Teams Rn Radiation Relationship Specialty Start Date End Date Tomasz Azar MD [address] [place] [address] PCP - General Internal Medicine 05/03/14 documented as of this encounter
== END 2025-05-08 11:46 | disposition home or self-care (01) ==
LOC: HO.HGS 11:19
PROVIDERS: PCP Internal Medicine; Visit Provider Surgery
DX: K40.90 Unilateral inguinal hernia, without obstruction or gangrene, not specified as recurrent (principal)
CPT/HCPCS: 99214

== ENCOUNTER 2025-09-07 11:07 | Outpatient (AMB) | payer BC, SELFPAY ==
--- NOTE | 2025-09-07 11:22 | A.OFFVIS_ITS ---
Intake Visit Reasons: 1Y Retro Ejac/PVR/PSA(set) Intake Note: Reason for Visit: 1Y PSA/PVR/Retro Ejac follow up Urology Meds: Tadalafil Blood Thinners: None Labs: PSA- 0.47 (03/26/2025) Imaging: None Last PVR: 21 Robotics Technician Required: No Accompanied by: Self / Same As Patient Allergies Benadryl Allergy (Unknown, Uncoded 09/07/25 11:27) heart palpitations HPI Comments Details: Gilbert is a very pleasant male. He is a patient of Dr. Nick. He is seen for the following urologic conditions - erectile dysfunction - lower urinary tract symptoms Twelve month follow-up Had been on daily tadalafil which has run out Experiencing progressive urinary urgency with nocturia and weakness of stream Has significant bother Initiate alfuzosin therapy Three-month follow-up uroflow office Refill daily tadalafil Lower urinary tract symptoms Trial alfuzosin Erectile dysfunction Progressive Has been using sildenafil on demand Would like to switch to Cialis daily Prescription provided [facility] Medical History ADD (attention deficit disorder) HTN (hypertension) High cholesterol Review of Systems Const Denies chills and Denies fever(s) Card Reports no additional complaints and Denies syncope Resp Denies cough GI Denies abdominal pain and Denies heartburn Reports as per HPI and Denies change in libido Neuro Denies syncope Psych Denies change in libido Endo Denies change in libido Physical Exam Const General: cooperative, healthy appearing, comfortable and no acute distress Orientation/consciousness: patient oriented x3 HEENT Face and sinus: Yes normal facial exam Mouth: moist mucous membranes Neck Neck: Yes normal visual inspection, Yes full ROM and Yes trachea midline Chest Chest palpation & inspection: normal inspection of the chest Resp Effort & Inspection: normal respiratory effort, able to speak in complete se ntences and no respiratory distress GI Inspection: Yes normal to inspection Back/Spine/Pelvis Cervical Spine: normal cervical lordosis Thoracic/Lumbar Spine: thoracic and lumbar spine normal to inspection Skin General skin exam: no rashes or lesions noted Neuro General: patient oriented x3, gait normal, tone normal and moves all extremities Extrem General: Yes normal to inspection and Yes capillary refill normal Assessment & Plan Assessment & Plan (1) Erectile dysfunction: Code(s): N52.9 - Male erectile dysfunction, unspecified Category: Medical (2) BPH NOS w/o ur obs/LUTS: Code(s): N40.0 - Benign prostatic hyperplasia without lower urinary tract symptoms Category: Medical Plan Three-month follow-up uroflow office, bladder ultrasound Orders: Orders US bladder 3 Months N40.0 - Benign prostatic hyperplasia without lower urinary tract symptoms Medications: New alfuzosin ER 10 mg PO BEDTIME 90 tabs 0RF 90 days N40.0 - Benign prostatic hyperplasia without lower urinary tract symptoms Refilled tadalafil 5 mg PO DAILY 90 tabs 0RF sexual activity 90 days N52.01 - Erectile dysfunction due to arterial insufficiency Patient Instructions: This note is constructed using voice recognition software. While every effort has been made to ensure accuracy doping supervisor errors may have been included. Imaging studies, laboratory and physical exam results were discussed and reviewed in detail. No major barriers to patient understanding were identified. An opportunity to ask questions regarding the treatment plan was provided. All questions were answered. The patient expressed understanding and agreement with the above treatment plan. The patient is aware they should contact our office by phone for worsening of their current condition or the appearance of new urologic symptoms. Compliance is encouraged with any medications and followup testing that is ordered. It is a privilege to participate in the urologic care of your patient. If you have any questions or concerns regarding treatment for the above conditions, or other urologic issues, please do not hesitate to contact me. The office telephone contact is [phone]. Sincerely, Dr Luis Mckee MD, [facility] - Urology Compassionate Specialist Care for the Genitourinary System Coding Level of Care Code Est Pt Level 4 (00762) Diagnoses Erectile dysfunction N52.9 BPH NOS w/o ur obs/LUTS N40.0
== END 2025-09-07 11:47 | disposition home or self-care (01) ==
LOC: HO.HUSH 11:08
PROVIDERS: PCP Internal Medicine; Visit Provider Urology
DX: N52.9 Male erectile dysfunction, unspecified (principal); N40.0 Benign prostatic hyperplasia without lower urinary tract symptoms
CPT/HCPCS: 99214

== ENCOUNTER 2025-09-13 06:59 | Day surgery (SDC) | payer BC, SELFPAY ==
--- OUTSIDE RECORDS SUMMARY | 2024-08-15 08:00 | XMS_ITS ---
Author Organization [facility] Address [address] [place] [phone] Care Team Providers Care Buyer Broker Name Role Phone Sandoval Brock MD, Tomasz Primary Care Provide r Wilbert Pak [phone] Stewart Reno Unavailable Unavailable REASON FOR VISIT Patient presents today for gastritis, ? ulcer Encounters Encounter Location Date Provider Diagnosis [facility] [address] [facility] [address] [place] [phone] 08/15/2024 Wilbert Good Plan Of Treatment No Information Progress Notes * ADONAY QUEENOB:[birth year] (55 yo M)Acc No.[id number]:08/15/2024 Progress Notes Patient: KATELYN ZUNIGA Provider: Rico Good MD :1970 A ge:53 Y S ex:Male Date:08/15/2024 Address:[address] [place], [place] [id number] Pcp:Tomasz julian MD Subjective: * Chief Complaints: * P atient presents today for gastritis, ? ulcer * The named appointment provid er may or may not be the originator of this progress note, and it is not deemed complete until electronically signed by the appointment provider. Sign off status: Pending * Provider: Rico Good MD Date: 10/15/2023 Generated for Chuy ng/Fapatg/eTransmitting on: 11/07/2024 10:48 PM EST
--- OUTSIDE RECORDS SUMMARY | 2025-09-06 22:48 | XMS_ITS | Patient Health Record ---
Author Organization [facility] Address [address] [place] [phone] Care Team Providers Care Tick Sewer Name Role Phone Sandoval Brock MD, Tomasz Primary Care Provide r Unavailable Wilbert Good Unavailable [phone] Stewart Reno Unavailable Unavailable Allergies Allergen (clinical drug ingredient) Drug/Non Drug Allergy documented on EMR Reaction Allergy Type Onset Date Status walnut (uncoded) Unknown Allergy Act светлана diphenhydramine Benadryl SENSITIVITY Drug Allergy Active Reason For Referral No Information Medications Medication SIG (Take, Route, Frequency, Duration) Notes Start Date End Date Status Zinc 100 MG Tablet 1 tablet Orally Once a day; Duration: 30 day(s) Active Dicyclomine HCl 10 MG Capsule 1 or 2 cap sules Orally Every 6 hours as needed for abdominal discomfort; Duration: 30 day(s) 01/26/2024 Active Omeprazole 20 MG Capsule Delayed Release TK 1 C PO QD AC Oral; Duration: 30 Active Calcium Magnesium Ac tive Pravastatin Sodium 40 MG Tablet TK 1 T PO QD Oral; Duration: 90 Active Lisinopril 10 MG Tablet TK 1 T PO QD Ora l; Duration: 90 Active Chlorthalidone 25 MG Tablet TK 1 T PO QD Oral; Duration: 90 Active Methylphenidate HCl ER 18 MG Tablet Extended Release (Schedule II Drug) TK 1 T PO QD IN THE MORNING Oral; Duration: 30 Active Aspirin 81 MG Tablet Chewable SYSTEMS QA ANALYST 1 T PO QD Oral; Duration: 30 Active Immunizations Vaccine Route Administration Date Status Comme nts Influenza Unknown 01/25/2020 Refused Influenza Unknown 01/26/2024 Refused Social History Tobacco Use: Social History Observation Description Date Details (start date - stop date) Never Smoker NA - NA Social History Drugs/Alcohol: Social Info Question Answer Notes Alcohol Screen Did you have a drink containing alcohol in the past year? Yes How often did you have a drink containing alcohol in the past year? Never (0 point) How many drinks did you have on a typical day when you were drinking in the past year? 1 or 2 drinks (0 point) How often did you have 6 or more drinks on one occasion in the past year? 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 Section Notes: Nonsmoker; no sig alcohol Nonsmoker; no sig alcohol Problems Problem Type SNOMED Code ICD Code Onset Dates Problem Status W/U Status Risk Notes Problem Screening for malignant neoplasm of colon (598446210) Encounter for screening for malignant neoplasm of colon (Z12.11) Active confirmed Problem Gastroesophageal reflux disease (093290610) Gastroesophageal reflux disease, esophagitis presence not specified (K21.9) Active confirmed Problem Right upper quadrant pain (622973980) RUQ abdominal pain (R10.11) Active confirmed Problem Left lower quadrant pain (297676668) LLQ abdominal pain (R10.32) Active confirmed Plan Of Treatment Pending Test Test Name Order Date LIVER PROFILE 01/26/2024 CBC w DIFF 01/26/2024 US abdomen limited 01/26/2024 Future Test Test Name Order Date UPPER GI ENDOSCOPY 01/25/2020 COLONOSCOPY 01/25/2020 Insurance Providers Payer Name Payer Address Payer Phone Subscriber Number Group Number Insured Name Patient Relationship to Insured Coverage Start Date Coverage End Date [facility] [employer] [address] [place] [address] [id number] BERNICE KATELYN Self - patient is the insured Medical (General) History Medical History History ICD Code Denies [place],DM,CVA,Lung disease,renal dise ase Hypertension Hyperlipidemia GERD-describes an EGD in [facility] in approx 2014; upper endoscopy with me in 03/2020 revealed a small hiatal hernia and reflux, but no evidence of any esophagitis nor Yang's esophagus ADD Colonoscopy in 03/2020 revealed only hype rplastic polyps Surgical History Surgery Date(Month/Year) TESTICLE TORSION
--- OUTSIDE RECORDS SUMMARY | 2025-09-06 22:48 | XMS_ITS | Encounter Summary ---
Author Organization [employer] Address [address] [place] [address] [address] [place] [address] Care Team Providers Care Casting House Laborer Name Role Phone Tomasz Azar MD Primary Care Provide r Reason for Visit * Reason Onset Date Comments Nurse Triage 01/08/2025 Encounter Details Date Type Department Care Team ([facility] st Contact Info) Description 01/08/2025 Telephone [facility] [address] [place], [place] [phone] Tomasz Azar MD [address] [place], [place] [phone] Nurse Triage Social History Tobacco Use Types Packs/Day Years Used Date Smoking Tobacco: Never Passive Smoke Exposure: Never Smokeless Tobacco: Never Alcohol Use Standard [...] AM EDT documented as of this encounter Miscellaneous Notes * Telephone Encounter - Caryn Jama - 01/08/2025 2:44 PM EDT Symptom: High Blood Pressure - Caller Reports Outcome: Transfer to a nurse or provider NOW! Reason: Change in vision The caller accepted this outcome. [phone] documented in this encounter Plan of Treatment Upcoming Encounters Date Type Department Care Team (Late st Contact Info) Description 10/11/2025 3:00 PM EST Office Visit [facility] [address] [place], [place] [phone] Tomasz Azar MD [address] [place] [address] documented as of this encounter Visit Diagnoses Not on filedocumented in this encounter Additional Health Concerns Assessment Noted Time PHQ-9 Depression Total Score: 14 024 3:10 PM EST documented as of this encounter Care Teams Casting House Laborer Relationship Specialty Start Date End Date Tomasz Azar MD [address] [place], [place] [phone] PCP - General Internal Medicine 05/03/14 documented as of this encounter
--- OUTSIDE RECORDS SUMMARY | 2025-09-06 22:48 | XMS_ITS | Clinical Summary ---
Author Organization [employer] Address [address] [place] [address] [address] [place] [address] Care Team Providers Care Mesh Cutter Name Role Phone Tomasz Azar MD Primary Care Provide r Allergies Active Allergy Reactions Criticality Noted Date Comments Diphenhydramine 07/05/2014 Other reaction(s): Altered Heart Rate Medications * This document contains information received from the source organization and may not represent a complete record from that organization. triamcinolone (Kenalog) 0.025 % creamIndications:Dermat itis Apply topically 2 times daily. 15 g 3 12/23/19 23 Active omeprazole (PriLOSEC) [address] capsuleIndications:Marbin roesophageal reflux disease without esophagitis TAKE 1 CAPSULE(20 MG) BY MOUTH BEFORE BREAKFAST 90 capsule 1 02/17/20 23 Active lisinopril 10 MG tabletIndications:Essen tial hypertension Take 1 tablet (10 mg) by mouth Once per day. 90 tablet 1 03/20/20 25 Active chlorthalidone (Hygroton) 25 MG tabletIndications:Essen tial hypertension Take 1 tablet (25 mg) by mouth Once per day. 90 tablet 1 03/20/20 25 Active fenofibrate micronized (Lofibra) 67 MG capsuleIndications:Pure hypertriglyceridemia Take 1 capsule (67 mg) by mouth with breakfast. 90 capsule 1 05/31/20 25 Active traZODone (Desyrel) 50 MG tabletIndications:Prima ry insomnia Take 1 tablet (50 mg) by mouth at bedtime. 30 tablet 3 05/31/20 25 Active terbinafine (LamISIL AT) 1 % creamIndications:Tinea cruris Apply topically 2 times daily. 42 g 1 05/31/20 25 Active methylphenidate ER (Concerta) 18 MG CR tabletIndications:Atten tion deficit hyperactivity disorder (ADHD), unspecified ADHD type TAKE 1 TABLET BY MOUTH EVERY MORNING 30 tablet 07/20/20 25 Active ibuprofen 600 MG tabletIndications:Non-r ecurrent unilateral inguinal hernia without obstruction or gangrene Take 1 tablet (600 mg) by mouth every 8 (eight) hours if needed for moderate pain or fever. 30 tablet 07/18/20 25 2024 Active Problems Problem Noted Date Diagnosed Date Tinea cruris 05/31/2025 Assessment & Plan (05/31/2025 3:19 PM EDT): Terbinafine BID Adenomyosis of gallbladder 03/20/2025 Assessment & Plan (03/20/2025 2:22 PM EDT): Seen by General surgeon Dr Lazo 05/05/2024 who recommended against surgical intervention and only asked for PRN f/u Left inguinal hernia 03/20/2025 Assessment & Plan (05/31/2025 3:03 PM EDT): Pt with c/o intermittent left inguinal lump that comes and goes after exercise. Seen by Dr Ward 05/10/2025 recommended surgical excision Assessment & Plan (03/20/2025 2:33 PM EDT): Pt with c/o intermittent left inguinal lump that comes and goes after exercise. On today's exam I am unable to palpate any hernias Plan: Eval by local surgeon Routine physical examination 01/13/2024 Assessment & Plan (01/13/2024 1:03 PM EDT): Patient here for a physical exam, today exam within normal limits LLQ abdominal pain 09/28/2023 Assessment & Plan (03/20/2025 2:20 PM EDT): Pt with c/o intermittent LLQ pain , negative work up so far. CT of abdomen and pelvis 09/09/2023 Negative Patient last sen by GI Dr. Good 03/02/2024. Started on Dicyclomine Assessment & Plan (01/13/2024 2:38 PM EDT): Pt with c/o intermittent LLQ pain , negative work up so far. CT of abdomen and pelvis 09/09/2023 Negative Patient has upcoming appointment with HARLEY Good 01/26/2024 Assessment & Plan (09/28/2023 2:21 PM EST): Pt with c/o intermittent LLQ pain , negative work up so far. CT of abdomen and pelvis 09/09/2023 Negative Plan: Will refer to GI Dr. Good Retrograde ejaculation 09/28/2023 Assessment & Plan (01/13/2024 2:38 PM EDT): Last seen by Urology 11/25/2023 started on Cialis Assessment & Plan (09/28/2023 2:26 PM EST): Pt c/o masturbating and feeling like he eyaculates but nothing comes out x 2 . Will refer to urology DELROY (generalized anxiety disorder) 09/28/2023 Assessment & Plan (05/31/2025 3:14 PM EDT): Referred to our [facility] clinician Assessment & Plan (03/20/2025 2:43 PM EDT): Referred to our [facility] clinician Assessment & Plan (09/28/2023 3:45 PM EST): PROGRESS NOTE: ID: Gilbert is a 53 y.o. straight-identified cis-male (pronouns he/him/his) with previous documented hx of Depression and Hx of MH services including OP Psychotherapy, who presents for Depression and Anxiety. Gilbert lives alone, has very demanding job and is also going to school. During IBH Consult Gilbert presenting with depressed mood, loss of interests/pleasure, changes in sleep difficulty falling asleep and restless, unsatisfying sleep, change in appetite or weight reduce appetite, psychomotor agitation, trouble concentrating, fatigue/loss of energy, worthlessness and excessive worry/anxiety, difficulty controlling worry, restless/keyed up/On edge, easily fatigued, difficulty concentrating, irritability or annoyed, muscle tension, and sleep disturbance difficulty falling asleep and restless, unsatisfying sleep; Symptoms have been present for a period of 10+ mo, for all symptoms in the context of demanding employment and stress relationship at work, going to school and lack of services. PLAN: (check all that apply) New/Additional Services needed: Off-site services for Behavioral Health Integration Plan: External OP therapy referral Patient Self Plan: Patient to utilize skills provided in intervention and Patient to reach out to [facility] team as needed and Patient to follow up with external referral. Preventative health care 12/22/2022 Assessment & Plan (05/31/2025 3:05 PM EDT): PSA 03/26/2025: Normal Colonoscopy: 04/03/2020 showed colon polyps and internal hemorrhoids Assessment & Plan (03/20/2025 2:38 PM EDT): PSA 02/10/2024: Normal Colonoscopy: 04/03/2020 showed colon polyps and internal hemorrhoids Assessment & Plan (12/22/2022 1:53 PM EDT): Colonoscopy: 04/03/2020 showed colon polyps and internal hemorrhoids Erectile dysfunction 12/22/2022 Assessment & Plan (03/20/2025 2:39 PM EDT): Pt evaluated by Urology Continue Cialis Assessment & Plan (01/13/2024 2:39 PM EDT): Pt evaluated by Urology Recently switched to Cialis Assessment & Plan (12/22/2022 3:37 PM EDT): Pt evaluated in the past by Urology did well with medications Will refill Viagra Dermatitis 12/22/2022 Hypertriglyceridemia 11/15/2018 Assessment & Plan (05/31/2025 3:05 PM EDT): Pt here for a f/u Most recent lipid profile from: Lab Results Component Value Date TRIG 248 (H) 03/26/2025 TRIG 177 (H) 02/10/2024 CHOL 157 03/26/2025 CHOL 143 02/10/2024 LDLCHOLCAL 78 03/26/2025 LDLCHOLCAL 80 02/10/2024 HDL 30 (L) 03/26/2025 HDL 28 (L) 02/10/2024 Patient had stopped taking the Fenofibrate 67 po daily and Pravastatin 40 In the past he had experienced muscle pain with Tricor, Plan: Restart Fenofibrate advised to try to adhere to a low carbohydrate, low fat and cholesterol diet, counseled and educated about diet and exercise, Assessment & Plan (03/20/2025 2:25 PM EDT): Pt here for a f/u Most recent lipid profile from: Lab Results Component Value Date TRIG 177 (H) 02/10/2024 CHOL 143 02/10/2024 LDLCHOLCAL 80 02/10/2024 HDL 28 (L) 02/10/2024 Currently on Fenofibrate 67 po daily and Pravastatin 40 In the past he had experienced muscle pain with Tricor, Plan: Continue Fenofibrate and Pravastatin, repeat Lipid profile advised to try to adhere to a low carbohydrate, low fat and cholesterol diet, counseled and educated about diet and exercise, Assessment & Plan (09/28/2023 2:09 PM EST): Pt here for a f/u Most recent lipid profile from: 05/28/2021 shows a total cholesterol of: 113 triglycerides of: 132 HDL of: 34 and LDL: 57 Currently on Fenofibrate 67 po daily and Pravastatin 40 In the past he had experienced muscle pain with Tricor, Plan: Continue Fenofibrate and Pravastatin, repeat Lipid profile advised to try to adhere to a low carbohydrate, low fat and cholesterol diet, counseled and educated about diet and exercise, Assessment & Plan (12/22/2022 1:51 PM EDT): Pt here for a f/u Most recent lipid profile from: 05/28/2021 shows a marked improvement total cholesterol of: 113 triglycerides of: 132 HDL of: 34 and LDL: 57 Currently on Fenofibrate 67 po daily and Pravastatin 40 In the past he had experienced muscle pain with Tricor, Plan: Continue Fenofibrate and Pravastatin, repeat Lipid profile advised to try to adhere to a low carbohydrate, low fat and cholesterol diet, counseled and educated about diet and exercise, Attention deficit hyperactivity disorder 017 Assessment & Plan (03/20/2025 2:46 PM EDT): pt feels good has no complaints On Concerta 18 mg po daily, he had stopped taking it hoping he would not need it but his concentration abilities have worsened and is asking if he could go back In the past he was seen by Psychiatry who initially recommended we started Stratera at a low dose. Unfortunately this was not covered by insurance. She then switched him to Concerta. I prescribe it for him. Assessment & Plan (12/22/2022 1:52 PM EDT): pt feels good has no complaints On Concerta 18 mg po daily Pt now able to focus, although he tells me he only takes it during periods where he requires intense focus He was seen by Psychiatry who initially recommended we started Stratera at a low dose. Unfortunately this was not covered by insurance. She then switched him to Concerta. I prescribe it for him. Essential hypertension 12/10/2015 Assessment & Plan (05/31/2025 3:04 PM EDT): Pt is here for a f/u He is on a regimen of: Chlorthalidone 25 mg po daily and Lisinopril 10 mg po daily Electrolytes, Bun and Creatinine Lab Results Component Value Date NA 141 03/26/2025 NA 140 02/10/2024 K 3.8 03/26/2025 K 3.8 02/10/2024 CL 107 03/26/2025 CL 110 (H) 02/10/2024 BUN 16 03/26/2025 BUN 13 02/10/2024 CREATININE 1.07 03/26/2025 CREATININE 1.01 02/10/2024 wnl. Plan: continue current regimen patient advised to adhere to a low sodium diet, encouraged about medication compliance, counseled about weight loss. Assessment & Plan (03/20/2025 2:37 PM EDT): Pt is here for a f/u He is supposed to be on a regimen of: Chlorthalidone 25 mg po daily and Lisinopril 10 mg po daily but he admits he is not taking them. Electrolytes, Bun and Creatinine Lab Results Component Value Date NA 140 02/10/2024 NA 141 09/09/2023 K 3.8 02/10/2024 K 4.1 09/09/2023 CL 110 (H) 02/10/2024 CL 109 (H) 09/09/2023 BUN 13 02/10/2024 BUN 18 (H) 09/09/2023 CREATININE 1.01 02/10/2024 CREATININE 1.00 09/09/2023 wnl. Will repeat patient advised to adhere to a low sodium diet, encouraged about medication compliance, counseled about weight loss. Assessment & Plan (01/13/2024 2:35 PM EDT): Pt is here for a f/u He is on a regimen of: Chlorthalidone 25 mg po daily and Lisinopril 10 mg po daily Electrolytes, Bun and Creatinine 09/09/2023 wnl. patient advised to adhere to a low sodium diet, encouraged about medication compliance, counseled about weight loss. Assessment & Plan (09/28/2023 2:08 PM EST): Pt is here for a f/u He is on a regimen of: Chlorthalidone 25 mg po daily and Lisinopril 10 mg po daily Electrolytes, Bun and Creatinine 09/09/2023 wnl. patient advised to adhere to a low sodium diet, encouraged about medication compliance, counseled about weight loss. Assessment & Plan (12/22/2022 1:50 PM EDT): Pt here for a f/u He is on a regimen of: Chlorthalidone 25 mg po daily and Lisinopril 10 mg po daily Electrolytes, Bun and Creatinine 05/28/2021 wnl. Will repeat patient advised to adhere to a low sodium diet, encouraged about medication compliance, counseled about weight loss. Moderate depressive disorder 06/05/2014 Assessment & Plan (03/20/2025 2:44 PM EDT): Pt evaluated by our [facility] clinician, referred for outpatient services.Pt would like to continue as is. Assessment & Plan (01/13/2024 2:51 PM EDT): Pt evaluated by our [facility] clinician, referred for outpatient services, he tells me he is still awaiting a phone call Encounters * This document contains information received from the source organization and may not represent a complete record from that organization. Date Type Department Care Team Description 09/03/2025 Telephone [facility] [place] [address] Meche Torres, plate corrector Question 07/27/2025 Telephone [facility] [place] [address] Tomasz Azar MD Med Refill 07/24/2025 Telephone [facility] [place] [address] Tomasz Azar MD September recall 07/18/2025 3:30 PM EDT Office Visit [facility] [place] [address] Maritza Hale ANP Scrotal swelling (Primary Dx); Non-recurrent unilateral inguinal hernia without obstruction or gangrene; Urinary frequency 07/18/2025 Travel 07/17/2025 Telephone [facility] [place] [place] [address] Maritza Hale ANP chart prep 07/16/2025 Refill [facility] [place] [address] Tomasz Azar MD Attention deficit hyperactivity disorder (ADHD), unspecified ADHD type 07/16/2025 Telephone [facility] [place] [address] Tomasz Azar MD Nurse Triage 07/09/2025 Travel 07/05/2025 Telephone [facility] [place] [address] Tomasz Azar MD 06/29/2025 Telephone [facility] [place] [address] Tomasz Azar MD telephone call from Last 3 Months Immunizations Immunization Administration Dates Next Due Influenza Injectable Quadriv alant Preservative Free IIV4 MDCK 06/16/2022,06/26/2021,06/19/2020 Influenza, IIV3, injectable 07/05/2014 Influenza, seasonal, injecta ble, preservative free 11/06/2013 Tdap 01/19/2017,02/26/2014,08/08/2012 Social History Tobacco Use Types Packs/Day Years Used Date Smoking Tobacco: Never Passive Smoke Exposure: Never Smokeless Tobacco: Never Tobacco Cessation:Counseling Given: Not Answered Alcohol Use Standard Drinks/Week Comments Never 0 (1 standard drink = 0.6 oz pur e alcohol) Depression Answer Date Recorded Patient Health Questionnaire-9 Score 7 06/20/2025 Patient Health Questionnaire-9 Score 7 06/20/2025 Last PHQ-9: Questionnaire Data Not on file 0 06/20/2025 Housing Stability Answer Date Recorded What is your housing situation today? I have srikanth recio 03/20/[address] you li ve. Do you have problems with any of the following? None of the above 03/20/2025 Food Insecurity Answer Date Recorded Within the past 12 months, y ou worried that your food would run out before you got money to buy more: Never True 03/20/2025 Within the past 12 months,th e food you bought just didn't last and you didn't have enough money to get more: Never True Transportation Answer Date Recorded In the past 12 months, has l ack of transportation kept you from medical appts, meetings, work or from getting things needed for daily living? No 03/20/2025 Utilities Answer Date Recorded In the past 12 months, has t he electric, gas, oil or water company threatened to shut off services in your home? No 03/20/2025 Depression Answer Date Recorded Patient Health Questionnaire-2 Score 0 06/20/2025 Internet Access Answer Date Recorded Internet Access Q1 Yes 03/20/2025 Internet Access Q2 Not on file 03/20/2025 Sex and Gender Information Value Date Recorded Sex Assigned at Male 07/27/2022 10:23 AM EDT Legal Sex Male 10:23 AM EDT Gender Identity Male 07/27/2022 10:23 AM EDT Sexual Orientation Straight 07/27/2022 10 :23 AM EDT Last Filed Vital Signs Vital Sign Reading Time Taken Comments Blood Pressure 120/70 07/18/2025 3:31 PM EDT Pulse 69 07/18/2025 3:31 PM EDT Temperature 36.1 C (97 F) 07/18/2025 3:31 PM EDT Respiratory Rate 10 07/18/2025 3:31 PM EDT Oxygen Saturation 95% 07/18/2025 3:31 PM EDT Inhaled Oxygen Concentration - - Weight 101 kg (222 lb) 07/18/2025 3:31 PM EDT Height 175.3 cm (5' 9 ) 07/18/2025 3:31 PM EDT Body Mass Index 32.78 07/18/2025 3:31 PM EDT Plan of Treatment Upcoming Encounters Date Type Department Care Team (Late st Contact Info) Description 10/11/2025 3:00 PM EST Office Visit [facility] [address] [place], [place] [phone] Tomasz Azar MD [address] [place] [address] Health Maintenance Due Date Last Done Comments CT Colonography 1969 FIT DNA/Cologuard 1969 FIT 1969 FOBT 1969 HIV Screening 1969 Sigmoidoscopy 1969 Hepatitis B Vaccines (1 of 3 - 19+ 3-dose series) 1988 Pneumococcal Vaccine: 50+ Years (1 of 1 - PCV) 2019 Zoster Vaccines (1 of 2) 2019 COVID-19 Vaccine (4 - 2024- season) 2025 09/10/2021, 12/20/2020, 11/22/2020 Influenza Vaccine (#1) 2025 2, 06/26/2021, 06/19/2020, Additional history exists Alcohol/Substance Use Screening 03/20/2026 03/20/2025 SDOH Screening 03/20/2026 03/20/2025 Disability Screening 05/30/2026 05/30/2025 Depression Screening 06/20/2026 06/20/2025, 06/20/20 25 Tobacco Screening 07/18/2026 07/18/2025 DTaP/Tdap/Td Vaccines (4 - Td or Tdap) 01/19/2027 01/19/2017, 02/26/2014, 08/08/2012 Lipid Panel 03/26/2030 03/26/2025, 0502/2024, 05/28/2021, Additional history exists Colonoscopy 04/03/2030 04/03/2020 Colorectal Cancer Screening 04/03/2030 RSV Patients and Patients Aged 60 years or older (1 - 1-dose 75+ series) 2044 Hepatitis C Screening Completed 03/06/2022 HIB Vaccines Aged Out No longer eligi [...] patient's age to complete this topic Meningococcal Vaccine Aged Out No noemi ines eligible based on patient's age to complete this topic RSV under 20 months Aged Out No longe r eligible based on patient's age to complete this topic Rotavirus Vaccines Aged Out No longer eligible based on patient's age to complete this topic Procedures Procedure Name Priority Date/Time Associated Diagnosis Comments LIPID PANEL, STANDARD Routine 03/26/2025 9:55 AM EDT Essential hypertension ZZZ HISTORICAL HEPATITIS C AB W/REFL TO HCV RNA, QN, PCR Routine 03/06/2022 1:19 PM EDT HM COLONOSCOPY Routine 04/03/2020 from Last 3 Months or Most Recently Relevant to Health Maintenance Results * (ABNORMAL) Lipid Panel, Standard (03/26/2025 9:55 AM EDT) Triglycerides 248(H) <150 mg/dL [facility] Comment:Desirable Triglyceri de: less than 150 mg/dLBorderline High Triglyceride 150-199 mg/dLHigh Triglyceride: 200-499 mg/dLVery High Triglyceride: greater than or equal to 5OO mg/dL Cholesterol 157 <200 mg/dL [facility] Comment:Desirable Cholestero l: less than 200 mg/dLBorderline High Cholesterol: 200-239 mg/dLHigh Cholesterol: greater than 239 mg/dL LDL Cholesterol Calculated 78 <100 mg/dL [facility] Comment:Desirable LDL: less than 100 mg/dLNear Optimal/Above Optimal LDL: 110- 129 mg/dLBorderline High LDL: 130-159 mg/dLHigh LDL: 160-189 mg/dLVery High LDL: greater than or equal to 190 mg/dL HDL Cholesterol 30(L) >40 mg/dL [facility] Comment:Desirable HDL: great er than 40 mg/dL Note: This HDL assay may give artificially low results in patients with liver disease. Blood Venous blood specimen / Unknown 03/26/2025 9:55 AM EDT 03/26/2025 10:59 AM EDT Tomasz Brock MD LAB BLOOD ORDERABLES Final Result [facility] [address] [place] [address] [phone] * HEPATITIS C AB W/REFL TO HCV RNA, QN, PCR (03/06/2022 1:19 PM EDT) HEPATITIS C ANTIBODY NON-REACT INGRID NON-REACT INGIRD [facility] INDEX 0.04 <1.00 [facility] Comment: HCV antibody was non-reactive. There is no laboratory evidence of HCV infection. In most cases, no further action is required. However, if recent HCV exposure is suspected, a test for HCV RNA (test code 84476) is suggested. For additional information please refer to http://education.[place]O.WhoisEDI/faq/KTU52u3 (This link is being provided for informational/ educational purposes only.) 03/06/2022 1:19 PM EDT Tomasz Brock MD HISTORICAL/NON ORDERA BLE LABS Final Result [facility] [address] [place] [address], * Colonoscopy (04/03/2020) Colonoscopy Normal Normal 04/03/2020 Katalina Longo - 04/03/2020 2:46 PM EDT Recommended 10 year follow up ( see scanned notes) us Historical Provider HEALTH MAINTENANCE Edited Result - Final from Last 3 Months or Most Recently Relevant to Health Maintenance Insurance HMO Care Teams Mesh Cutter Relationship Specialty Start Date End Date Tomasz Azar MD [address] [place] [id number] PCP - General Internal Medicine 05/03/14
--- OUTSIDE RECORDS SUMMARY | 2025-09-06 22:48 | XMS_ITS | Encounter Summary ---
Author Organization [employer] Address [address] [facility] 7 [place] [address] Care Team Providers Care Html Web Developer Name Role Phone Tomasz Azar MD Primary Care Provide r Reason for Visit * Reason Comments Med Refill Encounter Details Date Type Department Care Team ([facility] st Contact Info) Description 11/11/2023 Refill [facility] [address] [place], [place] [phone] Tomasz Azar MD [address] [place] [address] Social History Tobacco Use Types Packs/Day Years [...] Description 10/11/2025 3:00 PM EST Office Visit [facility] [address] [place] [address] Tomasz Azar MD [address] [place] [phone] documented as of this encounter Visit Diagnoses Not on filedocumented in this encounter Additional Health Concerns Assessment Noted Time PHQ-9 Depression Total Score: 14 024 3:10 PM EST documented as of this encounter Care Teams Html Web Developer Relationship Specialty Start Date End Date Tomasz Azar MD [address] [place] [phone] PCP - General Internal Medicine 05/03/14 documented as of this encounter
--- OUTSIDE RECORDS SUMMARY | 2025-09-06 22:48 | XMS_ITS | Encounter Summary ---
Author Organization [employer] Address [address] [place] [address] 7 [place] [address] Care Team Providers Care Silo Filler Name Role Phone Tomasz Azar MD Primary Care Provide r Reason for Visit * Reason Comments Med Refill Encounter Details Date Type Department Care Team (Late Contact Info) Description 08/12/2023 Refill [facility] [address] [place] [address] [phone] Tomasz Azar MD [address] [place] [address] [phone] Gastroesophageal reflux disease without esophagitis Social History Tobacco Use Types Packs/Day Years [...] Encounters Date Type Department Care Team (Late Contact Info) Description 10/11/2025 3:00 PM EST Office Visit [facility] [address] [place] [phone] Tomasz Azar MD [address] [place] [address] [phone] documented as of this encounter Visit Diagnoses Diagnosis Gastroesophageal reflux disease without esophagitis Esophageal reflux documented in this encounter Care Teams Silo Filler Relationship Specialty Start Date End Date Tomasz Azar MD [address] [place] [address] PCP - General Internal Medicine 05/03/14 documented as of this encounter
--- OUTSIDE RECORDS SUMMARY | 2025-09-06 22:48 | XMS_ITS | Encounter Summary ---
Author Organization [employer] Address [address] [facility] 7 [place] [address] Care Team Providers Care Steel Engraver Name Role Phone Tomasz Azar MD Primary Care Provide r Reason for Visit * Reason Onset Date Comments Medication Question 09/03/2025 Encounter Details Date Type Department Care Team ([facility] Contact Info) Description 09/03/2025 Telephone [facility] MEDICINE [address] [place], [place] [phone] Meche Torres RN [address] [place], [place] [phone] Medication Question Social History Tobacco Use Types Packs/Day Years [...] encounter Miscellaneous Notes * Telephone Encounter - Meche Torres RN - 09/03/2025 1:48 PM EST Telephone call placed to pt. No answer, left v/m advising pt refill his medications and if he needsany refills, to call our office. Please outreach pt to rock picker meds at [facility] - got multiple notices he is overdue for fill. documented in this encounter Plan of Treatment Upcoming Encounters Date Type Department Care Team (Late st Contact Info) Description 10/11/2025 3:00 PM EST Office Visit [facility] MEDICINE [address] [place] [address] Tomasz Azar MD [address] [place] [address] documented as of this encounter Visit Diagnoses Not on filedocumented in this encounter Additional Health Concerns Assessment Noted Time PHQ-9 Depression Total Score: 7 06/20/20 25 8:02 AM EDT documented as of this encounter Care Teams Steel Engraver Relationship Specialty Start Date End Date Tomasz Azar MD [address] [place] [id number] PCP - General Internal Medicine 05/03/14 documented as of this encounter
--- OUTSIDE RECORDS SUMMARY | 2025-09-06 22:48 | XMS_ITS | Encounter Summary ---
Author Organization [employer] Address [address] [place] [address] 7t [place] [address] Care Team Providers Care Vat Packer Name Role Phone Tomasz Azar MD Primary Care Provide r Reason for Visit * Reason Comments Med Refill Encounter Details Date Type Department Care Team (Late st Contact Info) Description 10/27/2023 Refill [facility] MEDICINE [address] [place], [place] [phone] Maritza Hale ANP [address] [place], [place] [phone] Right flank pain Social History Tobacco Use [...] Description 10/11/2025 3:00 PM EST Office Visit [facility] MEDICINE [address] [place] [address] Tomasz Azar MD [address] [place] [address] documented as of this encounter Visit Diagnoses Diagnosis Right flank pain Abdominal pain, unspecified site documented in this encounter Additional Health Concerns Assessment Noted Time PHQ-9 Depression Total Score: 14 024 3:10 PM EST documented as of this encounter Care Teams Vat Packer Relationship Specialty Start Date End Date Tomasz Azar MD [address] [place] [id number] PCP - General Internal Medicine 05/03/14 documented as of this encounter
--- OUTSIDE RECORDS SUMMARY | 2025-09-06 22:48 | XMS_ITS | Encounter Summary ---
Author Organization [employer] Address [address] [place] [address] 7 [place] [address] Care Team Providers Care Transportation Logistics Internship Name Role Phone Tomasz Azar MD Primary Care Provide r Encounter Details Date Type Department Care Team (Late st Contact Info) Description 01/28/2023 Abstract [facility] MEDICINE [address] [place] [address] [phone] Tomasz Azar MD [address] [place] [address] [phone] Social History Tobacco Use Types Packs/Day Years [...] Description 10/11/2025 3:00 PM EST Office Visit [facility] MEDICINE [address] [place], [place] [phone] Tomasz Azar MD [address] [place], [place] [phone] documented as of this encounter Procedures Procedure Name Priority Date/Time Associated Diagnosis Comments COLONOSCOPY Routine 04/03/2020 documented in this encounter Results * Colonoscopy (04/03/2020) Colonoscopy Normal Normal 04/03/2020 Narrative Katalina Perez - 04/03/2020 2:46 PM EDT Recommended 10 year follow up ( see scanned notes) us Historical Provider HEALTH MAINTENANCE Edited Result - Final documented in this encounter Visit Diagnoses Not on filedocumented in this encounter Care Teams Transportation Logistics Internship Relationship Specialty Start Date End Date Tomasz Azar MD [address] [place] [id number] PCP - General Internal Medicine 05/03/14 documented as of this encounter
--- OUTSIDE RECORDS SUMMARY | 2025-09-06 22:48 | XMS_ITS | Clinical Summary ---
Author Organization [email or web address] [facility] Address [address] [place] [address] Care Team Providers Care Local Flatbed Driver Name Role Phone Tomasz Naik MD Primary [...] on file Sexual Orientation Not on file Plan of Treatment Health Maintenance Due Date Last Done Comments Hepatitis B Vaccines (1 of 3 - 19+ 3-dose series) 1988 Pneumococcal Vaccine: 50+ Ye ars (1 of 1 - PCV) 2019 Zoster Vaccines (1 of 2) 2019 DTaP,Tdap,and Td Vaccines (2 - Td or Tdap) 08/08/2022 08/08/2012 Depression Screening 09/27/2024 COVID-19 Vaccine (1 - 2024-2 6 season) 2025 Influenza Vaccine (#1) 2025 RSV Immunization Adult Patie nts (1 - 1-dose 75+ series) 2044 HIB Vaccines Aged Out No longer eligi [...] age to complete this topic Care Teams Local Flatbed Driver Relationship Specialty Start Date End Date Tomasz Naik MD [address] [place] [address] [place] [phone] PCP - General 10/28/13
--- NOTE | 2025-09-10 12:41 | P.CONAN_ITS ---
Documented by User: Paige Haskins NP 09/10/25 12:43 HPI - Anesthesia Eval Consult details Narrative: 55yo M for Left ?Repair Hernia Inguinal Reducible with mesh PMFSH Active Problems Active Problems: All Active Problems Left inguinal hernia (Acute) Acid reflux (Acute) Left upper quadrant abdominal pain (Acute) Adenomyomatosis of gallbladder (Acute) BPH NOS w/o ur obs/LUTS (Acute) Erectile dysfunction (Acute) Past Medical History Medical History ADD (attention deficit disorder) HTN (hypertension) High cholesterol Social History Social History Patient Tobacco Use Status: Never used Tobacco Use of substances other than those prescribed or required for medical reasons: No Advance Directives: No Advance Directives Information Provided: Yes Meds Allergies Allergy/AdvReac Type Severity Reaction Status Date / Time diphenhydramine (From Allergy Palpitation Verified 09/13/25 07:23 Benadryl) s walnut Allergy Anaphylaxis Verified 09/13/25 07:22 Home Medications ?Medication ?Instructions ?Recorded ?Confirmed ?Last Taken ?Type fenofibrate micronized 67 mg 67 mg PO DAILY 07/09/20 1 11/14/24 Unknown History capsule flu vac qs 2019(4 yr up)CD(PF) 60 ml IM 07/09/2005/08 Unknown History mcg(15 mcgx4)/0.5 mL IM syringe lisinopril 10 mg tablet 10 mg PO DAILY 07/09/2008/27 Unknown History omeprazole 20 mg capsule,delayed 20 mg PO DAILY 09/13/25 09/13/25 History release sildenafil 100 mg tablet 100 mg PO DAILY PRN Sexual A ctivity 07/09/20 09/13/25 Unknown History Exam Pertinent Lab Results Pertinent Lab Results: Laboratory Tests 09/09/23 03/26/25 06:41 09:55 WBC 7.2 Hgb 14.6 Hct 43.1 Plt Count 319 D Sodium 141 Potassium 3.8 Chloride 107 Carbon Dioxide 26 BUN 16 Creatinine 1.07 Assessment and Plan Assessment Anesthesia Assessment: Chart Reviewed Documented by User: Norman Ray MD 09/13/25 09:40 COUNT INCLUDES THE [facility] Past Medical History Medical History ADD (attention deficit disorder) HTN (hypertension) High cholesterol Family History Family history of problems with anesthesia: No Surgical History History of Problems with Anesthesia: No Social History Social History Patient Tobacco Use Status: Never used Tobacco Use of substances other than those prescribed or required for medical reasons: No Advance Directives: No Advance Directives Information Provided: Yes Meds Allergies Allergy/AdvReac Type Severity Reaction Status Date / Time diphenhydramine (From Allergy Palpitation Verified 09/13/25 07:23 Benadryl) s walnut Allergy Anaphylaxis Verified 09/13/25 07:22 Home Medications ?Medication ?Instructions ?Recorded ?Confirmed ?Last Taken ?Type fenofibrate micronized 67 mg 67 mg PO DAILY 07/09/20 1 11/14/24 Unknown History capsule flu vac qs 2019(4 yr up)CD(PF) 60 ml IM 07/09/2005/08 Unknown History mcg(15 mcgx4)/0.5 mL IM syringe lisinopril 10 mg tablet 10 mg PO DAILY 07/09/2008/27 Unknown History omeprazole 20 mg capsule,delayed 20 mg PO DAILY 09/13/25 09/13/25 History release sildenafil 100 mg tablet 100 mg PO DAILY PRN Sexual A ctivity 07/09/20 09/13/25 Unknown History Exam Exam Date and Time: 09/13/25 Airway Mallampati Class: III TM Dist: >3cm Neck ROM: Full Heart: rrr Lungs: ctab vesicular Assessment and Plan Assessment Anesthesia Assessment: Anesthesia Plan Discussed Final Anesthetic Review Family History of Problems with Anesthesia: No History of Problems with Anesthesia: No NPO: Yes ASA Class: III Final Preanesthetic Review: No Changes in Pt Med Stat, Meds/Allgs Chart Reviewed, Consent Obtained/Reviewed and Anes Risks/Benef Reviewed Patient Risk: Low Procedure Risk: Low Anesthetic Plan Anesthetic Plan: GA Disposition: Standard PACU
[2025-09-11 07:15] VITALS: BMI 33.1
[2025-09-13] VITALS (7 sets, daily range): BP systolic 119–137; BP diastolic 69–100; PULSE 62–77; RESP 10–18; TEMP 36.1–36.3; O2SAT 94–96; BMI 32.7
[2025-09-13] MEDS: Lactated Ringers 1,000 ML 100 ML IVCONT (07:42)
--- NOTE | 2025-09-13 09:25 | P.HPSUR_ITS ---
Pre-Procedural Eval Section A - 24 Hr Update-Section A only Date of Service: 09/13/25 The patient is an INPATIENT: No Changes since office visit: Yes Patient answered all questions; No Cold of Flu in the past 2 weeks, No New Medical Problems and No Changes in Medication The patient has been examined within 24 hours of the surgical procedure. The History & Physical has been completed within 30 days and I have reviewed it.: Yes Section B - Complete if H&P > 30 days Chief Complaint: Unilateral inguinal hernia, without obstruction Details of Present Illness: No change in abdominal symptoms. Relevant Family History (Specify if Yes): No Relevant Social History: None Present Medications: see Short Stay Collaborative assessment Medical History: No relevant PMH History of Previous Operations: No relevant previous surgery Allergies: Allergies Allergy/AdvReac Type Severity Reaction Status Date / Time diphenhydramine (From Allergy Palpitation Verified 09/13/25 07:23 Benadryl) s walnut Allergy Anaphylaxis Verified 09/13/25 07:22 Review of Systems Sugical H&P ROS: Negative: Constitution, Cardiovascular, Respiratory, Neurological, Allergic/Immunologic, Gastrointestinal, Genitourinary, Musculoskeletal and Integumentary Exam Surgical H&P Exam: Normal: HEENT, Normal: Heart, Normal: Lungs, Normal: Extremi ties, Normal: Abdomen and Normal: Skin Plan Diagnosis/Plan: Unchanged I have reviewed the history and physical and performed a pertinent physical examination on my patient. No changes have occurred unless specified. Time Spent With Patient Time: Total time managing care of this patient today ____ minutes.
--- NOTE | 2025-09-13 10:57 | W.PM.OPN ---
Operative Note Operative Note Date of Service: 09/13/25 Narrative: Preoperative diagnosis: Left inguinal hernia reducible Postoperative diagnosis: Same Procedure: Repair of left inguinal hernia with mesh Surgeon: Stewart Reno MD Project Facilitator: Dimitri Dover PA-C Anesthesia: General endotracheal Indications for procedure: 55-year-old male patient presenting with a lump in the left groin which increases in size with lifting and straining. Operative findings: Direct left inguinal hernia Specimen: None Estimated blood loss: 5 mL Complications: None Procedure details: Patient was brought to the OR and placed in a supine position. After administering general anesthesia the patient's abdomen was prepped with with ChloraPrep and draped in a sterile fashion. A surgical time-out was called the consent confirmed. Patient received preoperative antibiotics and Venodyne boots were in place. Local anesthesia consisting of 0.5% Sensorcaine was then infiltrated over the left inguinal ligament. Incision with a skin tear down through subcutaneous tissue, past Pat's fascia and up to the external oblique aponeurosis. Additional local was then infiltrated below the aponeurosis. This was then incised with a scalpel and widened with the Metzenbaum scissors. Spermatic cord was then dissected free from the surrounding inguinal canal and retracted using a Golden drain. Fibers of the cremaster muscle were and a fatty cord identified. No indirect sac could be identified. A small lipoma was removed. Attention was then directed to the floor of the inguinal canal which was felt to be somewhat lax. Fibers of the internal oblique and transversalis aponeurosis were then incised with the electrocautery and the preperitoneal space entered. This was then widened using an open Ray-Erica sponge. A large PHS mesh was then obtained. The circular underlay was deployed within the preperitoneal space. The overlay was then secured to the pubic tubercle, conjoined tendon, and shelving edge of the inguinal ligament using a 0 Polysorb suture. A slit was made in the mesh in the mesh wrapped around the spermatic cord at the internal ring. This was then secured to the shelving edge with the ring enough to allow only the passage of the tip of the index finger. The remainder of the mesh was placed laterally below the external oblique aponeurosis. Wounds were then irrigated with saline solution and suctioned dry. External oblique aponeurosis was then closed using a running 2-0 Polysorb suture. Approximately 6 mL of Zenrelef was placed below the external oblique aponeurosis for postoperative pain relief. Pat's fascia and dermis were then reapproximated using interrupted 3-0 Polysorb sutures. Skin was closed using a running subcuticular 4-0 Polysorb suture. Steri-Strips, 4 x 4 gauze and Tegaderm were then applied. The patient tolerated the procedure well. Sponge, instrument, and needle counts reported as correct. The patient was transferred to PACU in stable condition.
== END 2025-09-13 13:25 | disposition home or self-care (01) ==
PROVIDERS: PCP Internal Medicine; Visit Provider Surgery
PROC: (CPT 49505; principal; 2025-09-13 09:20)
DX: K40.90 Unilateral inguinal hernia, without obstruction or gangrene, not specified as recurrent (principal); I10 Essential (primary) hypertension; E78.00 Pure hypercholesterolemia, unspecified; F98.8 Other specified behavioral and emotional disorders with onset usually occurring in childhood and adolescence; Z79.899 Other long term (current) drug therapy; Z88.5 Allergy status to narcotic agent
CPT/HCPCS: 49505; C1781; J0131; J0668; J0690; J1100; J1171; J1885; J2003; J2371; J2405; J2704; J3010

== ENCOUNTER → 2025-09-13 06:59 | Outpatient (BNV) | payer BC, SELFPAY | PROVIDERS: PCP Internal Medicine; Visit Provider Surgery | DX: K40.90 Unilateral inguinal hernia, without obstruction or gangrene, not specified as recurrent (principal) | CPT/HCPCS: 49505 ==

== ENCOUNTER 2025-09-24 09:56 | Outpatient (AMB) | payer BC, SELFPAY ==
--- OUTSIDE RECORDS SUMMARY | 2024-08-15 08:00 | XMS_ITS ---
Author Organization [facility] Address [address] [place] [id number] Care Team Providers Care Automation Tech Name Role Phone Sandoval Brock MD, Tomasz Primary Care Provide r Wilbert Pak [phone] Stewart Reno Unavailable REASON FOR VISIT Patient presents today for gastritis, ? ulcer Encounters Encounter Location Date Provider Diagnosis [facility] [address] [place] [phone] 08/15/2024 Wilbert Good Plan Of Treatment No Information Progress Notes * ADONAY QUEENOB:[birth year] (55 yo M)Acc No.[id number]:08/15/2024 Progress Notes Patient: KATELYN ZUNIGA Provider: Rico Good MD :1970 A ge:53 Y S ex:Male Date:08/15/2024 Address:[address] [place], [place] [id number] Pcp:Tomasz julian MD Subjective: * Chief Complaints: * P atient presents today for gastritis, ? ulcer * The named appointment provid er may or may not be the originator of this progress note, and it is not deemed complete until electronically signed by the appointment provider. Sign off status: Pending * Provider: Rico Good MD Date: 10/15/2023 Generated for Chuy ng/Fapatg/eTransmitting on: 10:48 AM EST
--- NOTE | 2025-09-24 09:59 | A.OFFVIS_ITS ---
Intake Visit Reasons: s/p LIH w/mesh Intake Note: Patient is seen in office for post op assessment post left inguinal hernia repair. Patient c/o: feels sore. Reports incision healing. Denies bleeding, oozing. Taking rx Oxycodone as needed. Has one pill left. C/o constipation. Of Note: Patient was advised to drink prune juice. Or OTC stool softner. surgery: 09-13-2025 Piecer Up Required: No Accompanied by: Self / Same As Patient Allergies diphenhydramine (From Benadryl) Allergy (Verified 09/24/25 10:06) Palpitations walnut Allergy (Verified 09/24/25 10:06) Anaphylaxis HPI Comments Details: 55-year-old male patient status post repair of a left inguinal hernia with mesh on 09/13/2025. He reports soreness in the left groin with swelling in the testicle. This was most significant approximately 2 days postoperative but has gradually improved with time. He has been using both ice and heat on the groin. He does report some constipation. He denies any nausea or vomiting. Overall he feels the pain is improving but was concerned about the swelling. [facility] Medical History ADD (attention deficit disorder) HTN (hypertension) High cholesterol Surgical History History of left inguinal hernia repair (09/13/25) Social History Comment: correct count Patient Tobacco Use Status: Never used Tobacco Physical Exam Const General: no acute distress Nutritional Appearance: well nourished Orientation/consciousness: patient oriented x3 Resp Effort & Inspection: normal respiratory effort GI Other: Abdomen is soft nondistended, nontender, incision in the left groin is clean, dry, and intact with the normal healing ridge, no erythema or discharge. Normal postoperative testicular swelling noted. No evidence of hematoma or seroma. No evidence of hernia recurrence. Neuro General: patient oriented x3 Extrem General: Yes no clubbing, cyanosis or edema Assessment & Plan Assessment & Plan (1) Left inguinal hernia: Code(s): K40.90 - Unilateral inguinal hernia, without obstruction or gangrene, not specified as recurrent Category: Medical Plan 55-year-old male patient status post repair of a left inguinal hernia with mesh. He tolerated the procedure well in his wounds are healing nicely. He should continue to avoid lifting greater than 10 lb but ambulation is encouraged. I recommended he switch to just heat either with a hot compress or heating pad. He should follow up in 1 month for wound examination but is welcome to call sooner for any new concerns. Coding Level of Care Code Global (02590) Diagnoses Left inguinal hernia K40.90
--- OUTSIDE RECORDS SUMMARY | 2025-09-24 10:48 | XMS_ITS | Encounter Summary ---
Author Organization [employer] Address [address] [place] [address] 7t [place] [address] Care Team Providers Care Rn Procedure Name Role Phone Tomasz Azar MD Primary Care Provide r Reason for Visit * Reason Comments Med Refill Encounter Details Date Type Department Care Team (Late st Contact Info) Description 10/27/2023 Refill [facility] MEDICINE [address] [place], [place] [phone] Maritza Hale ANP [address] [place], [place] [phone] Right flank pain Social History Tobacco Use [...] as of this encounter Plan of Treatment Not on file documented as of this encounter Visit Diagnoses Diagnosis Right flank pain Abdominal pain, unspecified site documented in this encounter Additional Health Concerns Assessment Noted Time PHQ-9 Depression Total Score: 14 024 3:10 PM EST documented as of this encounter Care Teams Rn Procedure Relationship Specialty Start Date End Date Tomasz Azar MD [address] [place] [address] PCP - General Internal Medicine 05/03/14 documented as of this encounter
--- OUTSIDE RECORDS SUMMARY | 2025-09-24 10:48 | XMS_ITS | Patient Health Record ---
Author Organization 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 Section Notes: Nonsmoker; no sig alcohol Nonsmoker; no sig alcohol Problems Problem Type SNOMED Code ICD Code Onset Dates Problem Status W/U Status Risk Notes Problem Screening for malignant neoplasm of colon (455498019) Encounter for screening for malignant neoplasm of colon (Z12.11) Active confirmed Problem Gastroesophageal reflux disease (657169198) Gastroesophageal reflux disease, esophagitis presence not specified (K21.9) Active confirmed Problem Right upper quadrant pain (256065754) RUQ abdominal pain (R10.11) Active confirmed Problem Left lower quadrant pain (157300064) LLQ abdominal pain (R10.32) Active confirmed Plan Of Treatment Pending Test Test Name Order Date LIVER PROFILE 01/26/2024 CBC w DIFF 01/26/2024 US abdomen limited 01/26/2024 Future Test Test Name Order Date UPPER GI ENDOSCOPY 01/25/2020 COLONOSCOPY 01/25/2020 Insurance Providers Payer Name Payer Address Payer Phone Subscriber Number Group Number Insured Name Patient Relationship to Insured Coverage Start Date Coverage End Date [facility] [employer] CLAIM[employer] [address] [place] [address] [id number] BERNICE KATELYN Self - patient is the insured Medical (General) History Medical History History ICD Code Denies SD,DM,CVA,Lung disease,renal dise ase Hypertension Hyperlipidemia GERD-describes an EGD in [facility] in approx 2014; upper endoscopy with me in 03/2020 revealed a small hiatal hernia and reflux, but no evidence of any esophagitis nor Yang's esophagus ADD Colonoscopy in 03/2020 revealed only hype rplastic polyps Surgical History Surgery Date(Month/Year) TESTICLE TORSION
--- OUTSIDE RECORDS SUMMARY | 2025-09-24 10:48 | XMS_ITS | Encounter Summary ---
Author Organization [employer] Address [address] 7 [place] [address] Care Team Providers Care Licensed Aircraft Maintenance Engineer Name Role Phone Tomasz Azar MD Primary Care Provide r Reason for Visit * Reason Comments Med Refill Encounter Details Date Type Department Care Team ([facility] st Contact Info) Description 11/11/2023 Refill [facility] MEDICINE [address] [place], [place] [phone] Tomasz Azar MD [address] [place] [address] Social History Tobacco Use Types [...] documented as of this encounter Care Teams Licensed Aircraft Maintenance Engineer Relationship Specialty Start Date End Date Tomasz Azar MD [address] [place] [address] PCP - General Internal Medicine 05/03/14 documented as of this encounter
--- OUTSIDE RECORDS SUMMARY | 2025-09-24 10:49 | XMS_ITS | Encounter Summary ---
Author Organization [employer] Address [address] [place] [address] 7 [place] [address] Care Team Providers Care Pull Out Operator Name Role Phone Tomasz Azar MD Primary Care Provide r Reason for Visit * Reason Comments Med Refill Encounter Details Date Type Department Care Team ([facility] st Contact Info) Description 08/12/2023 Refill [facility] MEDICINE [address] [place], [place] [phone] Tomasz Azar MD [address] [place], [place] [phone] Gastroesophageal reflux disease without esophagitis Social History [...] reflux documented in this encounter Care Teams Pull Out Operator Relationship Specialty Start Date End Date Tomasz Azar MD [address] [place] [phone] PCP - General Internal Medicine 05/03/14 documented as of this encounter
--- OUTSIDE RECORDS SUMMARY | 2025-09-24 10:49 | XMS_ITS | Encounter Summary ---
Author Organization [employer] Address [address] [place] [address] 7 [place] [address] Care Team Providers Care Kettle Cleaner Name Role Phone Tomasz Azar MD Primary Care Provide r Reason for Visit * Reason Onset Date Comments Nurse Triage 01/08/2025 Encounter Details Date Type Department Care Team ([facility] st Contact Info) Description 01/08/2025 Telephone [facility] MEDICINE [address] [place], [place] [phone] Tomasz Azar MD [address] [place], [place] [phone] Nurse Triage Social History Tobacco Use Types [...] in vision The caller accepted this outcome. [phone] documented in this encounter Plan of Treatment Not on file documented as of this encounter Visit Diagnoses Not on filedocumented in this encounter Additional Health Concerns Assessment Noted Time PHQ-9 Depression Total Score: 14 024 3:10 PM EST documented as of this encounter Care Teams Kettle Cleaner Relationship Specialty Start Date End Date Tomasz Azar MD [address] [place] [address] PCP - General Internal Medicine 05/03/14 documented as of this encounter
--- OUTSIDE RECORDS SUMMARY | 2025-09-24 10:49 | XMS_ITS | Encounter Summary ---
Author Organization [employer] Address [address] [place] [address] 7t [place] [address] Care Team Providers Care Labor And Delivery Nurse Name Role Phone Tomasz Azar MD Primary Care Provide r Encounter Details Date Type Department Care Team (Late st Contact Info) Description 01/28/2023 Abstract [facility] MEDICINE [address] [place], [place] [phone] Tomasz Azar MD [address] [place], [place] [phone] Social History Tobacco Use Types Packs/Day Years [...] on file documented as of this encounter Procedures Procedure Name Priority Date/Time Associated Diagnosis Comments COLONOSCOPY Routine 04/03/2020 documented in this encounter Results * Colonoscopy (04/03/2020) Colonoscopy Normal Normal 04/03/2020 Narrative Ana Katalina - 04/03/2020 2:46 PM EDT Recommended 10 year follow up ( see scanned notes) Historical Provider HEALTH MAINTENANCE Edited Result - Final documented in this encounter Visit Diagnoses Not on filedocumented in this encounter Care Teams Labor And Delivery Nurse Relationship Specialty Start Date End Date Tomasz Azar MD [address] [place] [phone] PCP - General Internal Medicine 05/03/14 documented as of this encounter
--- OUTSIDE RECORDS SUMMARY | 2025-09-24 10:49 | XMS_ITS | Clinical Summary ---
Author Organization [facility] Address [address] [place] [address] Care Team Providers Care Rolling Down Machine Operator Name Role Phone Tomasz Naik MD Primary [...] 2019 Zoster Vaccines (1 of 2) 2019 Depression Screening 09/27/2024 COVID-19 Vaccine ( - season) 2025 Influenza Vaccine (#1) 2025 2, 06/26/2021, 06/19/2020, Additional history exists DTaP,Tdap,and Td Vaccines (4 - Td or Tdap) 01/19/2027 01/19/2017, 02/26/2014, 08/08/2012 RSV Immunization Adult Patients (1 - 1-dose 75+ series) 2044 HIB [...] to complete this topic RSV Immunization Patients Under 20 months Aged Out No longer eligible based on patient's age to complete this topic Varicella Vaccines Aged Out No longer eligible based on patient's age to complete this topic Care Teams Rolling Down Machine Operator Relationship Specialty Start Date End Date Tomasz Naik MD [address] [place] [address] [place] [phone] PCP - General 10/28/13
--- OUTSIDE RECORDS SUMMARY | 2025-09-24 10:49 | XMS_ITS | Clinical Summary ---
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 Started on Dicyclomine Assessment & Plan (01/13/2024 2:38 PM EDT): Pt with c/o intermittent LLQ pain , negative work up so far. CT of abdomen and pelvis 09/09/2023 Negative Patient has upcoming appointment with GI Dr. Good 01/26/2024 Assessment & Plan (09/28/2023 2:21 [...] (05/31/2025 3:14 PM EDT): Referred to our [facility] clinician Assessment & Plan (03/20/2025 2:43 PM EDT): Referred to our [facility] clinician Assessment & Plan (09/28/2023 3:45 PM [...] intervention and Patient to reach out to [facility] team as needed and Patient [...] 2:44 PM EDT): Pt evaluated by our [facility] clinician, referred for outpatient services.Pt would like to continue as is. Assessment & Plan (01/13/2024 2:51 PM EDT): Pt evaluated by our [facility] clinician, referred for outpatient services, he tells me he is still awaiting a phone call Encounters * This document contains information received from the source organization and may not represent a complete record from that organization. Date Type Department Care Team Description 09/11/2025 Telephone [facility] [place] [address] Tomasz Azar MD Appointment Request 09/03/2025 Telephone [facility] [place] [address] Meche Torres, single needle operator Question 07/27/2025 Telephone [facility] [place] [address] Tomasz Azar MD Med Refill 07/24/2025 Telephone [facility] [place] [address] Tomasz Azar MD Mirian recall 07/18/2025 3:30 PM EDT Office Visit [facility] [place] [address] Maritza Hale ANP Scrotal swelling (Primary Dx); Non-recurrent unilateral inguinal hernia without obstruction or gangrene; Urinary frequency 07/18/2025 Travel 07/17/2025 Telephone [facility] [place] [address] Maritza Hale ANP chart prep 07/16/2025 Refill [facility] [place] [address] Tomasz Azar MD Attention deficit hyperactivity disorder (ADHD), unspecified ADHD type 07/16/2025 Telephone [facility] [place] [address] Tomasz Azar MD Nurse Triage 07/09/2025 Travel 07/05/2025 Telephone [facility] [place] [address] Tomasz Azar MD 06/29/2025 Telephone [facility] [place] [address] Tomasz Azar MD telephone call from Last [...] is your housing situation today? I have srikanthmarisabel recio 03/20/[address] you [...] 07/18/2025 3:31 PM EDT Plan of Treatment Health Maintenance Due Date [...] 09/10/2021, 12/20/2020, 11/22/2020 Influenza Vaccine (#1) 2025 , 06/26/2021, 06/19/2020, Additional history exists Alcohol/Substance Use Screening 03/20/2026 03/20/2025 SDOH Screening 03/20/2026 03/20/2025 Disability Screening 05/30/2026 05/30/2025 Depression Screening 06/20/2026 06/20/2025, 06/20/20 25 Tobacco Screening 07/18/2026 07/18/2025 DTaP/Tdap/Td Vaccines (4 - Td or Tdap) 01/19/2027 01/19/2017, 02/26/2014, 08/08/2012 Lipid Panel 03/26/2030 03/26/2025, 05/02/2024, 05/28/2021, Additional history exists Colonoscopy 04/03/2030 04/03/2020 [...] 9:55 AM EDT) Triglycerides 248(H) <150 mg/dL [facility] Comment:Desirable Triglyceri de: less than 150 mg/dLBorderline High Triglyceride 150-199 mg/dLHigh Triglyceride: 200-499 mg/dLVery High Triglyceride: greater than or equal to 5OO mg/dL Cholesterol 157 <200 mg/dL [facility] Comment:Desirable Cholestero l: less than 200 mg/dLBorderline High Cholesterol: 200-239 mg/dLHigh Cholesterol: greater than 239 mg/dL LDL Cholesterol Calculated 78 <100 mg/dL [facility] Comment:Desirable LDL: less than 100 mg/dLNear Optimal/Above Optimal LDL: 110- 129 mg/dLBorderline High LDL: 130-159 mg/dLHigh LDL: 160-189 mg/dLVery High LDL: greater than or equal to 190 mg/dL HDL Cholesterol 30(L) >40 mg/dL [facility] Comment:Desirable HDL: great er than 40 mg/dL Note: This HDL assay may give artificially low results in patients with liver disease. Blood Venous blood specimen / Unknown 03/26/2025 9:55 AM EDT 03/26/2025 10:59 AM EDT Tomasz Brock MD LAB BLOOD ORDERABLES Final Result [facility] [address] [place] [address] [phone] * HEPATITIS C AB W/REFL TO HCV RNA, QN, PCR (03/06/2022 1:19 PM EDT) HEPATITIS C ANTIBODY NON-REACT INGRID NON-REACT INGRID [facility] INDEX 0.04 <1.00 [facility] Comment: HCV antibody was non-reactive. There is no laboratory evidence of HCV infection. In most cases, no further action is required. However, if recent HCV exposure is suspected, a test for HCV RNA (test code 91174) is suggested. For additional information please refer to http://education.Solar3D/faq/KQL18w3 (This link is being provided for informational/ educational purposes only.) 03/06/2022 1:19 PM EDT Tomasz Brock MD HISTORICAL/NON ORDERA BLE LABS Final Result [facility] [address] [place] [address], * Colonoscopy (04/03/2020) Colonoscopy Normal Normal 04/03/2020 Narrative Katalina Perez - 04/03/2020 2:46 PM EDT Recommended 10 year follow up ( see scanned notes) us Historical Provider HEALTH MAINTENANCE Edited Result - Final from Last 3 Months or Most Recently Relevant to Health Maintenance Insurance [facility] H[facility] Care Teams Magnetic Grinder Operator Relationship Specialty Start Date End Date Tomasz Azar MD [address] [place] [phone] PCP - General Internal Medicine 05/03/14
== END 2025-09-24 10:13 | disposition home or self-care (01) ==
LOC: HO.HGS 09:56
PROVIDERS: PCP Internal Medicine; Visit Provider Surgery
DX: K40.90 Unilateral inguinal hernia, without obstruction or gangrene, not specified as recurrent (principal)
CPT/HCPCS: 99024